=== PATIENT | male | born 1960 | race Caucasian/White ===

== ENCOUNTER 2021-08-27 05:17 | Inpatient (IN) ==
[2021-08-27] MEDS ORDERED: ONDANSETRON 4 MG/2 ML VIAL IV ONE (05:33)
[2021-08-27] MEDS ORDERED: 0.9 % SODIUM CHLORIDE 1,000 ML IV ONE (05:33)
[2021-08-27 06:30] LABS: Basophils # (Auto) 0.04 K/mcL (0.00-0.30); Basophils % (Auto) 0.3 % (0.0-2.0); Eosinophils # (Auto) 0.15 K/mcL (0.00-0.70); Eosinophils % (Auto) 1.1 % (0.0-7.0); Hemoglobin 10.8 g/dL (13.7-17.5); Mean Cell Volume 87.3 fL (80.0-100.0); Mean Corpuscular HGB Conc 29.2 g/dL (31.0-36.0); Mean Platelet Volume 10.3 fL (7.4-10.4); Monocytes # (Auto) 0.74 K/mcL (0.10-0.90); Monocytes % (Auto) 5.5 % (1.0-12.0); Neutrophils % (Auto) 87.1 % (38.0-78.0); Platelet Count 373 K/mcL (140-440); RBC 4.24 M/mcL (4.63-6.08); Red Cell Distribution Width 16.6 % (11.5-14.5); WBC 13.4 K/mcL (4.5-11.0)
[2021-08-27] MEDS ORDERED: PANTOPRAZOLE 40 MG VIAL IV ONE (06:46)
[2021-08-27] MEDS ORDERED: MAG HYDROX/AL HYDROX/SIMETH 30 ML ORAL.SUSP PO ONE (06:46)
--- NOTE | 2021-08-27 06:46 | Emergency Department Note ---
Nausea/Vomiting/Diarrhea HPI General Chief complaint: Nausea/Vomiting/Diarrhea Stated complaint: Nausea, Vomiting Time Seen by Provider: 08/27/21 05:33 Source: patient Mode of arrival: EMS Limitations: no limitations History of Present Illness HPI Narrative: Narrative: 61-year-old male history of CVA, type 2 diabetes, peptic ulcer disease, hypertension hyperlipidemia presenting to the ED with nonbloody nausea vomiting for the past 2 days, says he is unable to keep anything down. For me he denies any abdominal pain denies any diarrhea and states he is still passing flatus and having regular bowel movements no fever no chills no cardiorespiratory complaints. Says he feels dehydrated. Previous abdominal amarjit geries include appendectomy. Denies any history of hepatobiliary or pancreatic disease. No other complaints. Related Data Home Medications Medication Instructions Recorded Confirmed aspirin 81 mg tablet,delayed 81 mg PO QDAY tab 10/20/14 06/16/21 release pantoprazole 40 mg tablet,delayed 40 mg PO QDAY tab 05/29/20 06/16/21 release Previous Rx's Medication Instructions Recorded motorized wheelchair See Dose Instructions TOPICAL 06/11/15 DAILY #1 disable parking permit #1 each 09/11/15 MATTRESS #1 08/10/16 blood-glucose meter (Contour Next #1 each 07/04/18 Meter) lancets (Comfort Lancets) #100 each 07/04/18 ferrous sulfate 325 mg (65 mg 325 mg PO QDAY #1 tab 09/04/19 iron) tablet,delayed release pravastatin 20 mg tablet 20 mg PO QHS #90 tab 04/14/21 amlodipine 5 mg tablet 5 mg PO QDAY #90 tab 07/16/21 bisoprolol 10 1 tab PO BID #180 tab 07/16/21 mg-hydrochlorothiazide 6.25 mg tablet clopidogrel 75 mg tablet 75 mg PO QDAY #90 tab 07/16/21 levothyroxine 50 mcg tablet 50 mcg PO QDAY #90 tab 07/16/21 lisinopril 5 mg tablet 5 mg PO QDAY #90 tab 07/16/21 metformin 500 mg tablet,extended 1,000 mg PO BID #360 tab 07/16/21 release 24 hr dulaglutide 1.5 mg/0.5 mL 1.5 mg (0.5 mL) SUB-Q QWEEK 120 07/28/21 subcutaneous pen injector Days #8 ml (Trulicity) hydrocodone 7.5 mg-acetaminophen 1 tab PO BID PRN #56 tab 08/18/21 325 mg tablet Allergies Allergy/AdvReac Type Severity Reaction Status Date / Time No Known Intolerances Allergy Unknown Unknown Verified 06/16/21 08:01 Review of Systems ROS ROS Narrative: Narrative: All systems ED: reviewed and negative except as stated. [facility] Narrative Patient History Narrative: Narrative: Medical/Surgical/Family History All Active Problems (Updated 08/27/21 @ 06:59 by Kermit Loja DO) Nausea & vomiting (Acute) JULIANN (acute kidney injury) (Acute) Medicare annual wellness visit, subsequent (Acute) History of osteomyelitis (Acute) Amputation of finger (Chronic) Tubular adenoma of colon (Chronic) Peptic esophageal ulcer (Chronic) H/O esophagogastroduodenoscopy (Chronic) History of colonoscopy (Chronic) Medicare annual wellness visit, initial (Acute) Chronic pain of left lower extremity (Chronic) Foreign body in throat (Acute) Hemiplegia, post-stroke (Chronic) Uncontrolled type 2 diabetes mellitus (Chronic) Wheelchair dependence (Chronic) History of cerebrovascular accident (CVA) with residual deficit (Chronic) H/O hand surgery (Chronic) S/P appendectomy (Chronic) Pain in limb (Chronic 08/21/14) Pain in joint involving pelvic region and thigh (Chronic) Obesity (Chronic) Hypothyroidism (Chronic) Hypertension, essential (Chronic) Hyperlipidemia (Chronic) Hemiplegia, post-stroke (Chronic) Esophageal reflux (Chronic) DMII (diabetes mellitus, type 2) (Chronic) CVA (cerebral vascular accident) (Chronic 04/01/08) Anemia (Chronic 09/29/11) Medical History Anemia (09/29/11) Chronic pain of left lower extremity CVA (cerebral vascular accident) (04/01/08) DMII (diabetes mellitus, type 2) Esophageal reflux Hemiplegia, post-stroke Left Hemiplegia, post-stroke History of osteomyelitis Right index finger amputation July 2020. Hyperlipidemia Hypertension, essential Hypothyroidism Medicare annual wellness visit, initial Medicare annual wellness visit, subsequent Obesity Pain in joint involving pelvic region and thigh Chronic left hip and knee pain worse since the stroke in 2007. Pain in limb (08/21/14) Peptic esophageal ulcer Tubular adenoma of colon Uncontrolled type 2 diabetes mellitus Surgical History Amputation of finger July 2020, second digit right hand, due to osteomyelitis distal phalanx. H/O esophagogastroduodenoscopy April 2020 H/O hand surgery 1968- Amputation of fifth digit on right hand resulted from accident History of colonoscopy April 2020 S/P appendectomy 2003 Family History Mother Coronary artery disease Living: required coronary artery bypass graft Type 2 diabetes mellitus Brother Type 2 diabetes mellitus Grandfather-paternal Type 2 diabetes mellitus Malignant neoplasm Grandmother-maternal Type 2 diabetes mellitus Social History Smoking Status: Never smoker Alcohol Intake Frequency: does not drink Substance Use: does not use Exam Narrative Narrative: Narrative: Constitutional: normally developed, no acute distress . Head: Normocephalic, atraumatic, Eyes: No Icterus, ENT: Dry mucus membranes, Neck: Supple, Cardiac: Normal heart sounds, palpable radial pulses, no peripheral edema Pulmonary: Normal respiratory effort. Breath sounds clear, no wheeze, rhonchi, rales, Gastrointestinal: Abdomen soft, non-distended, non-tender, negative Melgar's Musculoskeletal: No gross deformities, well perfused Skin: warm, dry Neuro: Alert and oriented. General Limitations: no limitations Course Vital Signs Vital signs: Vital Signs Temperature 36.1 C 08/27/21 05:19 Pulse Rate 84 08/27/21 05:19 Respiratory Rate 18 08/27/21 05:19 Blood Pressure 96/61 08/27/21 05:19 Pulse Oximetry (%) 95 08/27/21 05:19 Temperature 36.1 C 08/27/21 05:19 Pulse Rate 86 08/27/21 05:55 Respiratory Rate 18 08/27/21 05:19 Blood Pressure 82/51 08/27/21 05:55 Pulse Oximetry (%) 93 08/27/21 05:55 MDM MDM Narrative Medical decision making narrative: Narrative: 61-year-old with intractable nausea vomiting for past 2 days denies abdominal pain and benign exam overall nontoxic does appear dry blood pressure is mildly hypotensive but is mentating very well. Will obtain labs and hydrate the patient with 2 L IV fluids and reevaluate. Twelve-lead EKG sinus rhythm heart rate 88 MO, QRS, QTc within normal, old inferior infarct no acute ischemic or STEMI criteria Point of care troponin -0.01 CBC White count 13.4 hemoglobin stable 10.8 Electrolytes do show an anion gap metabolic acidosis and acute kidney injury creatinine 3.3, glucose is 164 lipase is normal LFTs bilirubin normal. May be due to severe dehydration from intractable nausea vomiting however Considering the electrolyte disturbances will obtain CT of the abdomen as well as lactic acid and VBG. Patient will be signed out to next physician pending final disposition Lab Data Result diagrams: 08/27/21 05:48 08/27/21 05:48 Labs: Lab Results 08/27/21 08/27/21 08/27/21 Range/Units 05:48 05:48 05:49 WBC 13.4 H (4.5-11.0) K/mcL RBC 4.24 L (4.63-6.08) M/mcL Hgb 10.8 L (13.7-17.5) g/dL Hct 37.0 L (40.1-51.0) % MCV 87.3 (80.0-100.0) fL MCH 25.5 L (26.0-34.0) pg MCHC 29.2 L (31.0-36.0) g/dL RDW 16.6 H (11.5-14.5) % Plt Count 373 (140-440) K/mcL MPV 10.3 (7.4-10.4) fL Neut % (Auto) 87.1 H (38.0-78.0) % Lymph % (Auto) 6.0 L (15.5-49.0) % [place] % (Auto) 5.5 (1.0-12.0) % Eos % (Auto) 1.1 (0.0-7.0) % Baso % (Auto) 0.3 (0.0-2.0) % Lymph # (Auto) 0.80 L (1.50-4.80) K/mcL [place] # (Auto) 0.74 (0.10-0.90) K/mcL Eos # (Auto) 0.15 (0.00-0.70) K/mcL Baso # (Auto) 0.04 (0.00-0.30) K/mcL Absolute Neutrophils 11.71 H (1.80-8.00) K/mcL Sodium 133 (133-145) mmol/L Potassium 4.5 (3.3-5.1) mmol/L Chloride 102 (96-108) mmol/L Carbon Dioxide 11 L (22-30) mmol/L Anion Gap 20.0 H (8.0-16.0) BUN 93 H (8-23) mg/dL Creatinine 3.3 H (0.7-1.2) mg/dL GFR Calculation 19 Glucose 164 H (70-105) mg/dL Calcium 9.7 (8.6-10.4) mg/dL Total Bilirubin 0.2 (0.1-1.0) mg/dL AST 7 (<40) U/L ALT 8 (<40) U/L Alkaline Phosphatase 69 (39-117) U/L Total Protein 7.6 (5.9-8.4) gm/dL Albumin 3.2 (3.2-5.2) gm/dL Globulin 4.4 H (2.2-3.7) gm/dL Albumin/Globulin Ratio 0.7 L (1.0-2.3) Lipase 49 (7-60) U/L POC Troponin I 0.01 L (0.02-0.08) Discharge Plan Patient/Caregiver Discharge Instructions Pt seen by [facility]/PA only: No Clinical Impression: Nausea & vomiting, JULIANN (acute kidney injury) Patient Disposition: Still a Patient Condition: Fair Follow up with: Geovanny Lopez PA-C [Primary Care Provider] - Prescriptions: No Action (DME) disable parking permit Qty: 1 0RF Rx Instructions: use as directed. ferrous sulfate 325 mg (65 mg iron) tablet,delayed release 325 mg (65 mg iron) tablet,delayed release (DR/EC) 325 mg PO QDAY Qty: 1 0RF pravastatin 20 mg tablet 20 mg PO QHS Qty: 90 1RF lisinopril 5 mg tablet 5 mg PO QDAY Qty: 90 1RF metformin 500 mg tablet extended release 24 hr 1,000 mg PO BID Qty: 360 1RF bisoprolol-hydrochlorothiazide 10-6.25 mg tablet 1 tab PO BID Qty: 180 1RF clopidogrel 75 mg tablet 75 mg PO QDAY Qty: 90 1RF amlodipine 5 mg tablet 5 mg PO QDAY Qty: 90 1RF levothyroxine 50 mcg tablet 50 mcg PO QDAY Qty: 90 1RF Trulicity 1.5 mg/0.5 mL pen injector 1.5 mg SUB-Q QWEEK 120 Days Qty: 8 3RF hydrocodone-acetaminophen 7.5-325 mg tablet 1 tab PO BID PRN (Reason: pain) Qty: 56 0RF Rx Instructions: 1 tablet twice daily as needed for pain interfering with rest; for LEFT knee and hip pain since the stroke, okay to refill every 28 days. aspirin 81 mg tablet,delayed release (DR/EC) 81 mg PO QDAY 0RF motorized wheelchair See Dose Instructions TOPICAL DAILY Qty: 1 0RF Dose Instruction: for daily use Rx Instructions: for daily use TOPICAL DAILY (DME) MATTRESS Qty: 1 0RF Rx Instructions: MATTRESS FOR HOSPITAL BED [id number] PER PATIENT (DME) blood-glucose meter [Contour Next Meter] misc See Dose Instructions .ROUTE .MEDSUPPLY Qty: 1 0RF Dose Instruction: As directed Rx Instructions: Test once daily (DME) lancets [Comfort Lancets] misc See Dose Instructions .ROUTE .MEDSUPPLY Qty: 100 0RF Dose Instruction: As directed Rx Instructions: Use one daily pantoprazole 40 mg tablet,delayed release (DR/EC) 40 mg PO QDAY 0RF
[2021-08-27 06:47] LABS: ALT/SGPT 8 U/L (<40); AST/SGOT 7 U/L (<40); Albumin 3.2 gm/dL (3.2-5.2); Albumin/Globulin Ratio 0.7 (1.0-2.3); Alkaline Phosphatase 69 U/L (39-117); Bilirubin,Total 0.2 mg/dL (0.1-1.0); Blood Urea Nitrogen 93 mg/dL (8-23); Calcium 9.7 mg/dL (8.6-10.4); Carbon Dioxide 11 mmol/L (22-30); Chloride 102 mmol/L (96-108); Globulin 4.4 gm/dL (2.2-3.7); Glomerular Filtration Rate 19; Glucose 164 mg/dL (70-105)
[2021-08-27] MEDS ORDERED: LACTATED RINGERS 1,000 ML IV ONE (06:47)
--- NOTE | 2021-08-27 08:15 | Cat Scan Report ---
History: Nausea, vomiting, abdominal pain, left hip pain, no prior history of cancer TECHNIQUE: The patient was imaged without oral or intravenous contrast. Patient has abnormally elevated serum creatinine level. He was scanned from above the diaphragm through the symphysis pubis. Sagittal and coronal reformats were created. The radiation exposure was limited using dose reduction technology. FINDINGS: Above the left diaphragm in the anterior segment of the left lung base there is a well-circumscribed 1.0 x 1.1 cm mass. On the most superior image, in the right middle lobe there is a ill-defined nodular density measuring approximately 7 x 15 mm in size. It goes beyond the [id number]. No pleural effusion is present. Evaluation of the abdominal organs without contrast is somewhat limited. The liver is normal in size. There are several punctate calcifications in the portal triads in the right lobe. The gallbladder is normal in contour. It may contain some sludge but there are no calcified stones. The wall is not thickened or inflamed. The bile ducts are nondilated. The spleen is normal in size and homogeneous. No abnormality is detected in the pancreas. The adrenals are normal. Patient has a complex heterogeneous solid mass replacing much of the left kidney. It extends laterally into the perirenal fat. It measures roughly 7.5 x 9.9 x 12 cm. Without contrast, the left renal vein cannot be evaluated. However, it appears larger than the right, suggesting tumor infiltration. Patient also has multiple staghorn calculi in the left kidney. The largest is in the upper pole and measures 2.2 x 2.8 x 3.8 cm. There are smaller calculi in the right kidney. There is a smaller staghorn calculus in the lower pole infundibulum which measures 1.0 x 1.7 cm. No mass is seen in the right kidney. There is no hydronephrosis in either kidney. Aorta is normal in caliber and contains multiple scattered plaques. At the level of the left kidney, along with left side of the abdominal aorta there is a 1 cm lymph node. This could be a metastatic lymph node. No ascites is present. The bowel pattern is normal without evidence of obstruction or ileus. Urinary bladder is moderately distended. Prostate is moderately enlarged. Seminal vesicles are normal. 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 The tumor measures 4.0 x 4.3 cm. It is erodes cortex and is beginning to extend into the adjacent muscles. Severe osteoarthritis is present in the right hip and there is mild osteoarthritis in the left hip. Degenerative disc disease and arthritis are present at multiple levels in the spine. No spinal metastasis are seen. 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 Metastasis to left ischium, both lung bases, left para-aortic lymph node and probably left renal vein Bilateral renal calculi, without hydronephrosis Severe osteoarthritis in the right hip and moderate degenerative disc disease and arthritis in the lumbar spine Dr. Ferguson was called with report Interpreted and Authenticated by: Fabian Robison 08/27/21
--- NOTE | 2021-08-27 09:53 | Cat Scan Report ---
History: Left renal tumor with metastasis TECHNIQUE: The chest was imaged without contrast in axial plane at 2.5 mm intervals. Sagittal and coronal reformats were created. The radiation exposure was limited using dose reduction technology. FINDINGS: There are several widely dispersed noncalcified nodules in both lungs. They measure up to 11 mm in diameter. There are numerous pathologically enlarged lymph nodes in the mediastinum and both apulo. In the pretracheal retrocaval space the largest lymph node is 3.1 cm. Largest lymph node in the right hilum is 2.3 cm. No bone metastasis are seen in thorax. There is no pleural effusion. Heart size is normal. A large amount of calcified plaque is present in the coronary arteries. Large tumor is present in left kidney which was better seen on the preceding abdomen CT scan. IMPRESSION: Multiple pulmonary metastasis and multiple metastatic mediastinal and hilar lymph nodes Interpreted and Authenticated by: Fabian Robison 08/27/21
--- NOTE | 2021-08-27 10:46 | Nephrology Consult Note ---
HPI Data of Consult Patient: new to practice Consult date: 08/27/21 Requesting physician: Kermit Loja Primary Care Provider: Geovanny Lopez PA-C Consult Narrative Patient Information: Note initiated : 08/27/21 at 10:43 am Patient: Dashawn Smith 61 y/o M admitted on for Nausea, Vomiting. Dashawn Smith is a 61-year-old male with hypertension, hyperlipidemia, diabetes mellitus type 2, history of CVA presented to [facility] ED for nausea and vomiting. Labs were significant for metabolic acidosis and acute kidney injury. CT Abdomen and Pelvis without contrast reported a new large tumor in the left kidney (most likely a renal cell carcinoma) with metastasis to left ischium, both lung bases, left para-aortic lymph node and probably left renal vein. No hydronephrosis. He received 1L NS and 1L LR in ED. Nephrology consultation was requested for acute kidney injury. Chief complaint: Nausea and vomiting Reason for consult: Acute kidney injury cc:: CC: Constitutional Constitutional: Present fatigue and weakness EENT Nose, mouth and throat: Absent nasal congestion or sore throat Cardiovascular Cardiovascular: Absent chest pain or edema Respiratory Respiratory: Absent cough or dyspnea Gastrointestinal Gastrointestinal: Present nausea and vomiting Integumentary Integumentary: Absent rash or wounds Neurological Neurological: Present weakness; Absent confusion Psychiatric Psychiatric: Absent anxiety or panic attacks Hematologic/Lymphatic Hematologic/Lymphatic: Absent easy bleeding Allergic/Immunologic Allergic/Immunologic: Absent tongue swelling or uticaria PFSH PFSH All Active Problems (Updated 08/27/21 @ 10:44 by Bubba Pierre MD) Metabolic acidosis (Acute) Acute kidney injury with acute tubular necrosis (Acute) Nausea & vomiting (Acute) JULIANN (acute kidney injury) (Acute) Medicare annual wellness visit, subsequent (Acute) History of osteomyelitis (Acute) Amputation of finger (Chronic) Tubular adenoma of colon (Chronic) Peptic esophageal ulcer (Chronic) H/O esophagogastroduodenoscopy (Chronic) History of colonoscopy (Chronic) Medicare annual wellness visit, initial (Acute) Chronic pain of left lower extremity (Chronic) Foreign body in throat (Acute) Hemiplegia, post-stroke (Chronic) Uncontrolled type 2 diabetes mellitus (Chronic) Wheelchair dependence (Chronic) History of cerebrovascular accident (CVA) with residual deficit (Chronic) H/O hand surgery (Chronic) S/P appendectomy (Chronic) Pain in limb (Chronic 08/21/14) Pain in joint involving pelvic region and thigh (Chronic) Obesity (Chronic) Hypothyroidism (Chronic) Hypertension, essential (Chronic) Hyperlipidemia (Chronic) Hemiplegia, post-stroke (Chronic) Esophageal reflux (Chronic) DMII (diabetes mellitus, type 2) (Chronic) CVA (cerebral vascular accident) (Chronic 04/01/08) Anemia (Chronic 09/29/11) Medical History Anemia (09/29/11) Chronic pain of left lower extremity CVA (cerebral vascular accident) (04/01/08) DMII (diabetes mellitus, type 2) Esophageal reflux Hemiplegia, post-stroke Left Hemiplegia, post-stroke History of osteomyelitis Right index finger amputation July 2020. Hyperlipidemia Hypertension, essential Hypothyroidism Medicare annual wellness visit, initial Medicare annual wellness visit, subsequent Obesity Pain in joint involving pelvic region and thigh Chronic left hip and knee pain worse since the stroke in 2007. Pain in limb (08/21/14) Peptic esophageal ulcer Tubular adenoma of colon Uncontrolled type 2 diabetes mellitus Surgical History Amputation of finger July 2020, second digit right hand, due to osteomyelitis distal phalanx. H/O esophagogastroduodenoscopy April 2020 H/O hand surgery 1968- Amputation of fifth digit on right hand resulted from accident History of colonoscopy April 2020 S/P appendectomy 2003 Family History Mother Coronary artery disease Living: required coronary artery bypass graft Type 2 diabetes mellitus Brother Type 2 diabetes mellitus Grandfather-paternal Type 2 diabetes mellitus Malignant neoplasm Grandmother-maternal Type 2 diabetes mellitus Social History household members: other details: roommate housing: apartment lives independently: Yes marital status: single education level: vocational service: No occupational status: disabled 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 other: Children-2 eating out: 4 or more times/week physical activity: none smoking status: Never smoker alcohol intake frequency: does not drink substance use type: does not use amanda/methodist: Methodist seatbelt use: never MEDS/ALLERGIES Home Medications and Allergies Home Medications Medication Instructions Recorded Confirmed Type aspirin 81 mg tablet,delayed 81 mg PO QDAY tab 10/20/14 06/16/21 History release motorized wheelchair See Dose Instructions TOPICAL 06/11/15 06/16/21 Rx DAILY #1 disable parking permit #1 each 09/11/15 06/16/21 Rx MATTRESS #1 08/10/16 06/16/21 Rx blood-glucose meter (Contour Next #1 each 07/04/18 06/16/21 Rx Meter) lancets (Comfort Lancets) #100 each 07/04/18 06/16/21 Rx ferrous sulfate 325 mg (65 mg 325 mg PO QDAY #1 tab 09/04/19 08/27/21 Rx iron) tablet,delayed release pantoprazole 40 mg tablet,delayed 40 mg PO QDAY tab 05/29/20 08/27/21 History release pravastatin 20 mg tablet 20 mg PO QHS #90 tab 04/14/21 08/27/21 Rx amlodipine 5 mg tablet 5 mg PO QDAY #90 tab 07/16/21 08/27/21 Rx bisoprolol 10 1 tab PO BID #180 tab 07/16/21 08/27/21 Rx mg-hydrochlorothiazide 6.25 mg tablet clopidogrel 75 mg tablet 75 mg PO QDAY #90 tab 07/16/21 08/27/21 Rx levothyroxine 50 mcg tablet 50 mcg PO QDAY #90 tab 07/16/21 08/27/21 Rx lisinopril 5 mg tablet 5 mg PO QDAY #90 tab 07/16/21 08/27/21 Rx metformin 500 mg tablet,extended 1,000 mg PO BID #360 tab 07/16/21 08/27/21 Rx release 24 hr dulaglutide 1.5 mg/0.5 mL 1.5 mg (0.5 mL) SUB-Q QWEEK 120 07/28/21 Rx subcutaneous pen injector Days #8 ml (Trulicity) hydrocodone 7.5 mg-acetaminophen 1 tab PO BID PRN #56 tab 08/18/21 08/27/21 Rx 325 mg tablet Allergies Allergy/AdvReac Type Severity Reaction Status Date / Time No Known Intolerances Allergy Unknown Unknown Verified 06/16/21 08:01 Physical Examination Vital Signs Vital signs: Temp Pulse Resp BP Pulse Ox 97.0 F 88 14 110/67 95 08/27/21 05:19 08/27/21 10:32 08/27/21 10:32 08/27/21 10:32 08/27/21 10:32 General Appearance General appearance: appears started age EENT EENT: mucous membranes dry Neck Neck: no JVD Respiratory Respiratory: clear Cardiovascular Cardiology: no edema Gastrointestinal Gastrointestinal: no tenderness and no guarding Integumentary Integumentary: no rash Neurologic Neurologic: no focal deficit and alert and oriented x3 Musculoskeletal Musculoskeletal: deformities Psychiatric Psychiatric: mood/affect appropriate and cooperative Results Lab Results Result Diagrams: 08/27/21 05:48 08/27/21 05:48 Lab results: Most recent lab results Creatinine 3.3 mg/dL (0.7-1.2) H 08/27/21 05:48 Calcium 9.7 mg/dL (8.6-10.4) 08/27/21 05:48 A/P Assessment and plan (1) Acute kidney injury with acute tubular necrosis: Assessment and plan: Dashawn Smith is a 61-year-old male with hypertension, hyperlipidemia, diabetes mellitus type 2, history of CVA presented to [facility] ED for nausea and vomiting. Labs were significant for metabolic acidosis and acute kidney injury. CT Abdomen and Pelvis without contrast reported a new large tumor in the left kidney (most likely a renal cell carcinoma) with metastasis to left ischium, both lung bases, left para-aortic lymph node and probably left renal vein. No hydronephrosis. He received 1L NS and 1L LR in ED. Nephrology consultation was requested for acute kidney injury. Acute kidney injury, likely acute tubular necrosis associated with dehydration from nausea, vomiting and decreased oral intake with metabolic acidosis, present on arrival. There is no recent history of IV contrast administration or NSAID use. Intravascular volume depletion suspected. Work up: Urinalysis pending. 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 Metastasis to left ischium, both lung bases, left para-aortic lymph node and probably left renal vein. Bilateral renal calculi, without hydronephrosis. Severe osteoarthritis in the right hip and moderate degenerative disc disease and arthritis in the lumbar spine. CT Chest without contrast on 08/27/21: Multiple pulmonary metastasis and multiple metastatic mediastinal and hilar lymph nodes. Progress: Serum creatinine increased from a baseline serum creatinine of 0.9-1.2 to 3.3. Baseline serum creatinine: 0.9-1.2 Urine output: 800 ml reported in ED. Metabolic acidosis. No fluid overload. No uremic symptoms. Recommendations/Plan: Sodium Bicarbonate 150 mEq in 1L D5W at 100 ml/hour for metabolic acidosis. No urgent acute hemodialysis need. He also declined transfer to another hospital for possible dialysis need. Avoid NSAIDs, nephrotoxic medications and IV contrast. Monitor BMP and urine output. Status: Acute (2) Metabolic acidosis: Status: Acute Time Spent With Patient Time: Total time spent is greater than 50% in coordination of care (as documented) at patient's floor/unit and/or counseling patient:
--- NOTE | 2021-08-27 10:49 | Emergency Department Note ---
Course Course Course Narrative: Patient CT scan is concerning for primary renal cell carcinoma with multiple metastases including bony and throughout the lungs. Patient's pH is 7.23 his BUN is 93 with a bicarb of 11 patient has been making urine. I spoke with our hospitalist they did not feel comfortable with him staying here as the patient may need urology services, oncology, interventional radiology if there is obstruction of the mass. We will attempt to transfer the patient. I have talked with [facility] this time did not agree to accept the patient. It felt the patient need fluid resuscitation and conservative measures prior to consideration of transfer to their facility. I have also spoke with [facility] in [place]. They tell me to continue IV fluids follow electrolytes and call back if patient's kidney function worsens. At this point in time they are not agreeable for transfer. Vital Signs Vital signs: Vital Signs Temperature 97.0 F 08/27/21 05:19 Pulse Rate 84 08/27/21 05:19 Respiratory Rate 18 08/27/21 05:19 Blood Pressure 96/61 08/27/21 05:19 Pulse Oximetry (%) 95 08/27/21 05:19 Temperature 98.3 F 08/27/21 23:10 Pulse Rate 90 08/27/21 23:10 Respiratory Rate 20 08/27/21 23:10 Blood Pressure 91/51 08/27/21 23:10 Pulse Oximetry (%) 95 08/27/21 23:10 [facility] MDM Narrative Medical decision making narrative: Narrative: Patient was in the emergency department for most of my shift. We are unable to find an accepting facility the hospitalist has graciously agreed to admit the patient in the interim primarily for correction of his metabolic derangements and kidney injury. Lab Data Result diagrams: 08/27/21 05:48 08/27/21 05:48 Labs: Lab Results 08/27/21 08/27/21 08/27/21 Range/Units 05:48 05:48 05:48 WBC 13.4 H (4.5-11.0) K/mcL RBC 4.24 L (4.63-6.08) M/mcL Hgb 10.8 L (13.7-17.5) g/dL Hct 37.0 L (40.1-51.0) % POC Hct (41-55) MCV 87.3 (80.0-100.0) fL MCH 25.5 L (26.0-34.0) pg MCHC 29.2 L (31.0-36.0) g/dL RDW 16.6 H (11.5-14.5) % Plt Count 373 (140-440) K/mcL MPV 10.3 (7.4-10.4) fL Neut % (Auto) 87.1 H (38.0-78.0) % Lymph % (Auto) 6.0 L (15.5-49.0) % Mcdonough % (Auto) 5.5 (1.0-12.0) % Eos % (Auto) 1.1 (0.0-7.0) % Baso % (Auto) 0.3 (0.0-2.0) % Lymph # (Auto) 0.80 L (1.50-4.80) K/mcL Mcdonough # (Auto) 0.74 (0.10-0.90) K/mcL Eos # (Auto) 0.15 (0.00-0.70) K/mcL Baso # (Auto) 0.04 (0.00-0.30) K/mcL Absolute Neutrophils 11.71 H (1.80-8.00) K/mcL POC VBG pH (7.32-7.42) POC VBG pCO2 at Temp (41-51) POC VBG pO2 (25-40) POC VBG HCO3 (24-28) POC VBG Total CO2 (25-29) POC Venous O2 Sat (40-70) POC VBG Base Excess (-2-2) POC Sodium (133-145) Sodium 133 (133-145) mmol/L POC Potassium (3.3-5.1) Potassium 4.5 (3.3-5.1) mmol/L POC Chloride (96-108) Chloride 102 (96-108) mmol/L Carbon Dioxide 11 L (22-30) mmol/L POC Total CO2 (22-30) Anion Gap 20.0 H (8.0-16.0) POC BUN (6-20) BUN 93 H (8-23) mg/dL Creatinine 3.3 H (0.7-1.2) mg/dL POC Creatinine (0.6-1.2) GFR Calculation 19 Glucose 164 H (70-105) mg/dL POC Glucose (70-105) POC Venous Lactate (0.5-2) Calcium 9.7 (8.6-10.4) mg/dL POC WB Ioniz Calcium (1.16-1.32) Total Bilirubin 0.2 (0.1-1.0) mg/dL AST 7 (<40) U/L ALT 8 (<40) U/L Alkaline Phosphatase 69 (39-117) U/L Total Protein 7.6 (5.9-8.4) gm/dL Albumin 3.2 (3.2-5.2) gm/dL Globulin 4.4 H (2.2-3.7) gm/dL Albumin/Globulin Ratio 0.7 L (1.0-2.3) Lipase 49 (7-60) U/L Beta-Hydroxybutyrate 1.65 H (<0.27) mmol/L Urine Color Urine Appearance (Clear) Urine pH (5.0-9.0) Ur Specific [place] (1.000-1.035) Urine Protein (Negative) mg/dL Urine Glucose (UA) (Negative) mg/dL Urine Ketones (Negative) mg/dL Urine Occult Blood (Negative) mg/dL Urine Nitrate (Negative) Urine Bilirubin (Negative) mg/dL Urine Urobilinogen mg/dL Ur Leukocyte Esterase (Negative) /uL Urine RBC (0-3) /hpf Urine WBC (0-4) /hpf Ur Squamous Epith Cells (0-4) /hpf Urine Bacteria (0) /hpf Hyaline Casts (0-2) /lph Ur Culture Indicated? POC Troponin I (0.02-0.08) 08/27/21 08/27/21 08/27/21 Range/Units 05:49 07:27 09:47 WBC (4.5-11.0) K/mcL RBC (4.63-6.08) M/mcL Hgb (13.7-17.5) g/dL Hct (40.1-51.0) % POC Hct (41-55) MCV (80.0-100.0) fL MCH (26.0-34.0) pg MCHC (31.0-36.0) g/dL RDW (11.5-14.5) % Plt Count (140-440) K/mcL MPV (7.4-10.4) fL Neut % (Auto) (38.0-78.0) % Lymph % (Auto) (15.5-49.0) % Mcdonough % (Auto) (1.0-12.0) % Eos % (Auto) (0.0-7.0) % Baso % (Auto) (0.0-2.0) % Lymph # (Auto) (1.50-4.80) K/mcL Mcdonough # (Auto) (0.10-0.90) K/mcL Eos # (Auto) (0.00-0.70) K/mcL Baso # (Auto) (0.00-0.30) K/mcL Absolute Neutrophils (1.80-8.00) K/mcL POC VBG pH 7.23 L (7.32-7.42) POC VBG pCO2 at Temp 35.3 L (41-51) POC VBG pO2 20 L (25-40) POC VBG HCO3 14.9 L (24-28) POC VBG Total CO2 16.0 L (25-29) POC Venous O2 Sat 24.0 L (40-70) POC VBG Base Excess -13.0 L (-2-2) POC Sodium (133-145) Sodium (133-145) mmol/L POC Potassium (3.3-5.1) Potassium (3.3-5.1) mmol/L POC Chloride (96-108) Chloride (96-108) mmol/L Carbon Dioxide (22-30) mmol/L POC Total CO2 (22-30) Anion Gap (8.0-16.0) POC BUN (6-20) BUN (8-23) mg/dL Creatinine (0.7-1.2) mg/dL POC Creatinine (0.6-1.2) GFR Calculation Glucose (70-105) mg/dL POC Glucose (70-105) POC Venous Lactate 1.0 (0.5-2) Calcium (8.6-10.4) mg/dL POC WB Ioniz Calcium (1.16-1.32) Total Bilirubin (0.1-1.0) mg/dL AST (<40) U/L ALT (<40) U/L Alkaline Phosphatase (39-117) U/L Total Protein (5.9-8.4) gm/dL Albumin (3.2-5.2) gm/dL Globulin (2.2-3.7) gm/dL Albumin/Globulin Ratio (1.0-2.3) Lipase (7-60) U/L Beta-Hydroxybutyrate (<0.27) mmol/L Urine Color Yellow Urine Appearance Hazy A (Clear) Urine pH 5.0 (5.0-9.0) Ur Specific [place] 1.014 (1.000-1.035) Urine Protein 30 A (Negative) mg/dL Urine Glucose (UA) Neg (Negative) mg/dL Urine Ketones Neg (Negative) mg/dL Urine Occult Blood 0.03 (Negative) mg/dL Urine Nitrate Neg (Negative) Urine Bilirubin Neg (Negative) mg/dL Urine Urobilinogen Neg mg/dL Ur Leukocyte Esterase Neg (Negative) /uL Urine RBC 1 (0-3) /hpf Urine WBC 2 (0-4) /hpf Ur Squamous Epith Cells 0 (0-4) /hpf Urine Bacteria None (0) /hpf Hyaline Casts 1 (0-2) /lph Ur Culture Indicated? No POC Troponin I 0.01 L (0.02-0.08) 08/27/21 08/27/21 Range/Units 12:51 12:52 WBC (4.5-11.0) K/mcL RBC (4.63-6.08) M/mcL Hgb (13.7-17.5) g/dL Hct (40.1-51.0) % POC Hct 30.0 L (41-55) MCV (80.0-100.0) fL MCH (26.0-34.0) pg MCHC (31.0-36.0) g/dL RDW (11.5-14.5) % Plt Count (140-440) K/mcL MPV (7.4-10.4) fL Neut % (Auto) (38.0-78.0) % Lymph % (Auto) (15.5-49.0) % Mcdonough % (Auto) (1.0-12.0) % Eos % (Auto) (0.0-7.0) % Baso % (Auto) (0.0-2.0) % Lymph # (Auto) (1.50-4.80) K/mcL Mcdonough # (Auto) (0.10-0.90) K/mcL Eos # (Auto) (0.00-0.70) K/mcL Baso # (Auto) (0.00-0.30) K/mcL Absolute Neutrophils (1.80-8.00) K/mcL POC VBG pH 7.30 L (7.32-7.42) POC VBG pCO2 at Temp 33.3 L (41-51) POC VBG pO2 17 L (25-40) POC VBG HCO3 16.3 L (24-28) POC VBG Total CO2 17.0 L (25-29) POC Venous O2 Sat 20.0 L (40-70) POC VBG Base Excess -10.0 L (-2-2) POC Sodium 137 (133-145) Sodium (133-145) mmol/L POC Potassium 4.2 (3.3-5.1) Potassium (3.3-5.1) mmol/L POC Chloride 110 H (96-108) Chloride (96-108) mmol/L Carbon Dioxide (22-30) mmol/L POC Total CO2 17.0 L (22-30) Anion Gap (8.0-16.0) POC BUN 98 H (6-20) BUN (8-23) mg/dL Creatinine (0.7-1.2) mg/dL POC Creatinine 3.2 H (0.6-1.2) GFR Calculation Glucose (70-105) mg/dL POC Glucose 128 H (70-105) POC Venous Lactate 0.6 (0.5-2) Calcium (8.6-10.4) mg/dL POC WB Ioniz Calcium 1.30 (1.16-1.32) Total Bilirubin (0.1-1.0) mg/dL AST (<40) U/L ALT (<40) U/L Alkaline Phosphatase (39-117) U/L Total Protein (5.9-8.4) gm/dL Albumin (3.2-5.2) gm/dL Globulin (2.2-3.7) gm/dL Albumin/Globulin Ratio (1.0-2.3) Lipase (7-60) U/L Beta-Hydroxybutyrate (<0.27) mmol/L Urine Color Urine Appearance (Clear) Urine pH (5.0-9.0) Ur Specific [place] (1.000-1.035) Urine Protein (Negative) mg/dL Urine Glucose (UA) (Negative) mg/dL Urine Ketones (Negative) mg/dL Urine Occult Blood (Negative) mg/dL Urine Nitrate (Negative) Urine Bilirubin (Negative) mg/dL Urine Urobilinogen mg/dL Ur Leukocyte Esterase (Negative) /uL Urine RBC (0-3) /hpf Urine WBC (0-4) /hpf Ur Squamous Epith Cells (0-4) /hpf Urine Bacteria (0) /hpf Hyaline Casts (0-2) /lph Ur Culture Indicated? POC Troponin I (0.02-0.08) ED POC Tests ED POC Tests: CORRINA - SARS Antigen Negative Discharge Plan Patient/Caregiver Discharge Instructions Pt seen by ROAD PRODUCTION GENERAL MANAGER/PA only: No Clinical Impression: Nausea & vomiting, JULIANN (acute kidney injury), Metastatic cancer, Left kidney mass Patient Disposition: Xfer As Inpt ([facility]) Condition: Fair Discharge Date/Time: 08/27/21 19:30
[2021-08-27 10:57] LABS: Appearance,Urine HAZY (Clear); Bilirubin,Urine NEG (Negative); Color,Urine YELLOW; Culture Indicated,Urine No; Glucose,Urine (UA) NEG (Negative); Ketones,Urine NEG (Negative); Leukocyte Esterase,Urine NEG /uL (Negative); Nitrate,Urine NEG (Negative); Protein,Urine 30 mg/dL (Negative); Specific Gravity,Urine 1.014 (1.000-1.035); Urine Blood 0.03 mg/dL (Negative); Urine Hyaline Cast 1 /lph (0-2); Urine RBC 1 /hpf (0-3); Urine Squamous Epithelial Cell 0 /hpf (0-4); Urine WBC 2 /hpf (0-4); Urobilinogen,Urine NEG
[2021-08-27] MEDS ORDERED: SODIUM BICARBONATE VIAL 150 MEQ in DEXTROSE 5% IN WATER 850 ML IV ONE (11:00)
[2021-08-27 12:55] LABS: POC Calcium, Ionized 1.3 (1.16-1.32); POC Creatinine 3.2 (0.6-1.2); POC Potassium 4.2 (3.3-5.1)
[2021-08-27] MEDS: morphine 2 MG/ML VIAL IV PRN ×2 (14:24→20:44)
--- NOTE | 2021-08-27 15:40 | Ultrasound Report ---
History: Nausea, vomiting, acute kidney injury, left renal tumor FINDINGS: There is a large complex heterogeneous tumor arising from the left kidney. It measures approximately 7.5 x 10 x 12 cm in size. This appears to invade the left renal vein. The tumor may be invading the right renal pelvis as well but there is no hydronephrosis. Left ureter is decompressed. There are staghorn calculi in the left kidney measuring up to 3.8 cm. No flow urine and could be demonstrated through the left ureter into the bladder. The right kidney is normal in size and contains nonobstructing stones. There is flow of urine through the right ureter into the bladder. The renal cortex is echogenic bilaterally due to chronic medical renal disease. Prostate is enlarged and heterogeneous. The bladder contained 507 cc of urine. IMPRESSION: Large tumor in the left kidney invading the left renal vein and possible of the renal pelvis No hydronephrosis left kidney Severely diminished urine output from the left kidney and normal urine output from right kidney Bilateral kidney stones Dr. Ferguson was called with the report Interpreted and Authenticated by: Fabian Robison 08/27/21
--- NOTE | 2021-08-27 16:49 | Internal Med History&Physical ---
HPI History of Present Illness Patient information: Note initiated : 08/27/21 at 4:39 pm Service Date, if different from initiated Date: [as above] Patient: Dashawn Smith a 61 y/o M admitted on for Nausea, Vomiting. Chief Complaint: [Weakness, nausea, vomiting] Chief complaint: Weakness History of present illness: Mr. Smith is a 61 year old M with a past medical history significant for prior stroke with residual dense left hemiplegia, diabetes mellitus type 2, and hypothyroidism who presents to the hospital with 4-day history of nausea, vomiting, and progressive weakness. The patient states that he has been unable to keep any food down. Despite being unable to eat or drink, the patient continued to take all of his medications somewhat included diuretics and antihypertensives as well as metformin. He lives alone and is mainly wheelchair dependent. His brother comes to visit and helps as well. He decided to come to the ER today as he was feeling very weak. On presentation he was hemodynamically stable and afebrile. Work-up included CT chest abdomen and pelvis which revealed large tumor in the left kidney which is most likely renal cell carcinoma that has metastasized to the left ischium, with numerous lung nodules and hilar lymphadenopathy. His lab work revealed acute kidney injury with a creatinine of 3.3. Initially the goal was to transfer the patient to a tertiary level facility with medical oncology, and possibly interventional radiology if there was concern for postobstructive uropathy. There is no accepting facility available and thus the hospital service was asked admit the patient for further management and evaluation of his acute kidney injury in the setting of newly diagnosed metastatic RCC. Review of Systems All systems: reviewed and no additional remarkable complaints except as stated Constitutional Constitutional: Present as per HPI EENT Eyes: Present as per HPI; Absent blurry vision Cardiovascular Cardiovascular: Present as per HPI; Absent chest pain, dyspnea, dyspnea on exertion, leg edema or palpatations Respiratory Respiratory: Present as per HPI; Absent cough, dyspnea, dyspnea on exertion, wheezing or stridor Gastrointestinal Gastrointestinal: Present as per HPI; Absent abdominal pain, diarrhea, dysphagia, hematemesis, melena, nausea or vomiting Musculoskeletal Musculoskeletal: Present as per HPI; Absent joint swelling, limited range of motion, muscle cramps, muscle weakness or myalgias Integumentary Integumentary: Present as per HPI; Absent erythema, new lesions, rash or wounds Neurological Neurological: Present as per HPI; Absent abnormal gait, behavioral changes, focal weakness, headache(s), loss of vision, numbness, sensory deficit or syncope Endocrine Endocrine: Absent change in body appearance, fatigue or heat intolerance Hematologic/Lymphatic Hematologic/Lymphatic: Present as per HPI PFSH PFSH All Active Problems (Updated 08/27/21 @ 16:47 by Kathy Holley MD) Generalized weakness (Acute) Left hemiplegia (Acute) Metastatic renal cell carcinoma (Acute) Metabolic acidosis (Acute) Acute kidney injury with acute tubular necrosis (Acute) Nausea & vomiting (Acute) JULIANN (acute kidney injury) (Acute) Medicare annual wellness visit, subsequent (Acute) History of osteomyelitis (Acute) Amputation of finger (Chronic) Tubular adenoma of colon (Chronic) Peptic esophageal ulcer (Chronic) H/O esophagogastroduodenoscopy (Chronic) History of colonoscopy (Chronic) Medicare annual wellness visit, initial (Acute) Chronic pain of left lower extremity (Chronic) Foreign body in throat (Acute) Hemiplegia, post-stroke (Chronic) Uncontrolled type 2 diabetes mellitus (Chronic) Wheelchair dependence (Chronic) History of cerebrovascular accident (CVA) with residual deficit (Chronic) H/O hand surgery (Chronic) S/P appendectomy (Chronic) Pain in limb (Chronic 08/21/14) Pain in joint involving pelvic region and thigh (Chronic) Obesity (Chronic) Hypothyroidism (Chronic) Hypertension, essential (Chronic) Hyperlipidemia (Chronic) Hemiplegia, post-stroke (Chronic) Esophageal reflux (Chronic) DMII (diabetes mellitus, type 2) (Chronic) CVA (cerebral vascular accident) (Chronic 04/01/08) Anemia (Chronic 09/29/11) Medical History Anemia (09/29/11) Chronic pain of left lower extremity CVA (cerebral vascular accident) (04/01/08) DMII (diabetes mellitus, type 2) Esophageal reflux Hemiplegia, post-stroke Left Hemiplegia, post-stroke History of osteomyelitis Right index finger amputation July 2020. Hyperlipidemia Hypertension, essential Hypothyroidism Medicare annual wellness visit, initial Medicare annual wellness visit, subsequent Obesity Pain in joint involving pelvic region and thigh Chronic left hip and knee pain worse since the stroke in 2007. Pain in limb (08/21/14) Peptic esophageal ulcer Tubular adenoma of colon Uncontrolled type 2 diabetes mellitus Surgical History Amputation of finger July 2020, second digit right hand, due to osteomyelitis distal phalanx. H/O esophagogastroduodenoscopy April 2020 H/O hand surgery 1969- Amputation of fifth digit on right hand resulted from accident History of colonoscopy April 2020 S/P appendectomy 2003 Family History Mother Coronary artery disease Living: required coronary artery bypass graft Type 2 diabetes mellitus Brother Type 2 diabetes mellitus Grandfather-paternal Type 2 diabetes mellitus Malignant neoplasm Grandmother-maternal Type 2 diabetes mellitus Social History household members: other details: roommate housing: apartment lives independently: Yes marital status: single education level: vocational service: No occupational status: disabled 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 other: Children-2 eating out: 4 or more times/week physical activity: none smoking status: Never smoker alcohol intake frequency: does not drink substance use type: does not use amanda/caodaism: Jain seatbelt use: never MEDS/ALLERGIES Home Medications and Allergies Home Medications Medication Instructions Recorded Confirmed Type aspirin 81 mg tablet,delayed 81 mg PO QDAY tab 10/20/14 06/16/21 History release motorized wheelchair See Dose Instructions TOPICAL 06/11/15 06/16/21 Rx DAILY #1 disable parking permit #1 each 09/11/15 06/16/21 Rx MATTRESS #1 08/10/16 06/16/21 Rx blood-glucose meter (Contour Next #1 each 07/04/18 06/16/21 Rx Meter) lancets (Comfort Lancets) #100 each 07/04/18 06/16/21 Rx ferrous sulfate 325 mg (65 mg 325 mg PO QDAY #1 tab 09/04/19 08/27/21 Rx iron) tablet,delayed release pantoprazole 40 mg tablet,delayed 40 mg PO QDAY tab 05/29/20 08/27/21 History release pravastatin 20 mg tablet 20 mg PO QHS #90 tab 04/14/21 08/27/21 Rx amlodipine 5 mg tablet 5 mg PO QDAY #90 tab 07/16/21 08/27/21 Rx bisoprolol 10 1 tab PO BID #180 tab 07/16/21 08/27/21 Rx mg-hydrochlorothiazide 6.25 mg tablet clopidogrel 75 mg tablet 75 mg PO QDAY #90 tab 07/16/21 08/27/21 Rx levothyroxine 50 mcg tablet 50 mcg PO QDAY #90 tab 07/16/21 08/27/21 Rx lisinopril 5 mg tablet 5 mg PO QDAY #90 tab 07/16/21 08/27/21 Rx metformin 500 mg tablet,extended 1,000 mg PO BID #360 tab 07/16/21 08/27/21 Rx release 24 hr dulaglutide 1.5 mg/0.5 mL 1.5 mg (0.5 mL) SUB-Q QWEEK 120 07/28/21 Rx subcutaneous pen injector Days #8 ml (Trulicity) hydrocodone 7.5 mg-acetaminophen 1 tab PO BID PRN #56 tab 08/18/21 08/27/21 Rx 325 mg tablet Allergies Allergy/AdvReac Type Severity Reaction Status Date / Time No Known Intolerances Allergy Unknown Unknown Verified 06/16/21 08:01 EXAM Constitutional Vitals: Temp Pulse Resp BP Pulse Ox 97.0 F 85 19 95/58 95 08/27/21 05:19 08/27/21 15:31 08/27/21 16:16 08/27/21 16:16 08/27/21 15:31 General appearance: average body habitus Head Head exam: Present atraumatic, normal inspection and normocephalic Eye Eye exam: Present EOMI, normal appearance and PERRL; Absent conjunctival injection ENT ENT exam: Present normal exam; Absent mucous membranes dry Neck Neck exam: Present full ROM; Absent lymphadenopathy Respiratory Respiratory exam: Present normal respiratory exam and CTAB; Absent decreased breath sounds, respiratory distress or wheezes Cardiovascular Cardiovascular exam: Present normal rate and rhythm and RRR; Absent JVD GI/Abdominal GI/Abdominal exam: Present normal bowel sounds and soft; Absent diminished bowel sounds, distended, guarding, mass, rebound or tenderness Neurological Exam Neurological exam: Present alert and oriented X3; Absent CN II-XII intact or normal gait Psychiatric Psychiatric exam: Present normal affect and normal mood Skin Skin exam: Present intact and warm; Absent erythema, pallor, petechiae or rash DATA Data Completed and Pending Labs: Labs from last 24 hours 08/27/21 08/27/21 08/27/21 12:52 12:51 09:47 WBC RBC Hgb Hct POC Hct 30.0 L MCV MCH MCHC RDW Plt Count MPV Neut % (Auto) Lymph % (Auto) [place] % (Auto) Eos % (Auto) Baso % (Auto) Lymph # (Auto) [place] # (Auto) Eos # (Auto) Baso # (Auto) Absolute Neutrophils POC VBG pH 7.30 L POC VBG pCO2 at Temp 33.3 L POC VBG pO2 17 L POC VBG HCO3 16.3 L POC VBG Total CO2 17.0 L POC Venous O2 Sat 20.0 L POC VBG Base Excess -10.0 L POC Sodium 137 Sodium POC Potassium 4.2 Potassium POC Chloride 110 H Chloride Carbon Dioxide POC Total CO2 17.0 L Anion Gap POC BUN 98 H BUN Creatinine POC Creatinine 3.2 H GFR Calculation Glucose POC Glucose 128 H POC Venous Lactate 0.6 Calcium POC WB Ioniz Calcium 1.30 Total Bilirubin AST ALT Alkaline Phosphatase Total Protein Albumin Globulin Albumin/Globulin Ratio Lipase Beta-Hydroxybutyrate Urine Color Yellow Urine Appearance Hazy A Urine pH 5.0 Ur Specific [place] 1.014 Urine Protein 30 A Urine Glucose (UA) Neg Urine Ketones Neg Urine Occult Blood 0.03 Urine Nitrate Neg Urine Bilirubin Neg Urine Urobilinogen Neg Ur Leukocyte Esterase Neg Urine RBC 1 Urine WBC 2 Ur Squamous Epith Cells 0 Urine Bacteria None Hyaline Casts 1 Ur Culture Indicated? No POC Troponin I 08/27/21 08/27/21 08/27/21 07:27 05:49 05:48 WBC RBC Hgb Hct POC Hct MCV MCH MCHC RDW Plt Count MPV Neut % (Auto) Lymph % (Auto) [place] % (Auto) Eos % (Auto) Baso % (Auto) Lymph # (Auto) [place] # (Auto) Eos # (Auto) Baso # (Auto) Absolute Neutrophils POC VBG pH 7.23 L POC VBG pCO2 at Temp 35.3 L POC VBG pO2 20 L POC VBG HCO3 14.9 L POC VBG Total CO2 16.0 L POC Venous O2 Sat 24.0 L POC VBG Base Excess -13.0 L POC Sodium Sodium POC Potassium Potassium POC Chloride Chloride Carbon Dioxide POC Total CO2 Anion Gap POC BUN BUN Creatinine POC Creatinine GFR Calculation Glucose POC Glucose POC Venous Lactate 1.0 Calcium POC WB Ioniz Calcium Total Bilirubin AST ALT Alkaline Phosphatase Total Protein Albumin Globulin Albumin/Globulin Ratio Lipase Beta-Hydroxybutyrate 1.65 H Urine Color Urine Appearance Urine pH Ur Specific [place] Urine Protein Urine Glucose (UA) Urine Ketones Urine Occult Blood Urine Nitrate Urine Bilirubin Urine Urobilinogen Ur Leukocyte Esterase Urine RBC Urine WBC Ur Squamous Epith Cells Urine Bacteria Hyaline Casts Ur Culture Indicated? POC Troponin I 0.01 L 08/27/21 08/27/21 05:48 05:48 WBC 13.4 H RBC 4.24 L Hgb 10.8 L Hct 37.0 L POC Hct MCV 87.3 MCH 25.5 L MCHC 29.2 L RDW 16.6 H Plt Count 373 MPV 10.3 Neut % (Auto) 87.1 H Lymph % (Auto) 6.0 L [place] % (Auto) 5.5 Eos % (Auto) 1.1 Baso % (Auto) 0.3 Lymph # (Auto) 0.80 L [place] # (Auto) 0.74 Eos # (Auto) 0.15 Baso # (Auto) 0.04 Absolute Neutrophils 11.71 H POC VBG pH POC VBG pCO2 at Temp POC VBG pO2 POC VBG HCO3 POC VBG Total CO2 POC Venous O2 Sat POC VBG Base Excess POC Sodium Sodium 133 POC Potassium Potassium 4.5 POC Chloride Chloride 102 Carbon Dioxide 11 L POC Total CO2 Anion Gap 20.0 H POC BUN BUN 93 H Creatinine 3.3 H POC Creatinine GFR Calculation 19 Glucose 164 H POC Glucose POC Venous Lactate Calcium 9.7 POC WB Ioniz Calcium Total Bilirubin 0.2 AST 7 ALT 8 Alkaline Phosphatase 69 Total Protein 7.6 Albumin 3.2 Globulin 4.4 H Albumin/Globulin Ratio 0.7 L Lipase 49 Beta-Hydroxybutyrate Urine Color Urine Appearance Urine pH Ur Specific [place] Urine Protein Urine Glucose (UA) Urine Ketones Urine Occult Blood Urine Nitrate Urine Bilirubin Urine Urobilinogen Ur Leukocyte Esterase Urine RBC Urine WBC Ur Squamous Epith Cells Urine Bacteria Hyaline Casts Ur Culture Indicated? POC Troponin I A/P Assessment and plan (1) Metabolic acidosis: Status: Acute (2) JULIANN (acute kidney injury): Status: Acute (3) Uncontrolled type 2 diabetes mellitus: Status: Chronic Qualifiers: Glycemic state: with hyperglycemia Qualified Code(s): E11.65 - Type 2 diabetes mellitus with hyperglycemia (4) History of cerebrovascular accident (CVA) with residual deficit: Status: Chronic (5) Metastatic renal cell carcinoma: Status: Acute (6) Left hemiplegia: Status: Acute (7) Generalized weakness: Status: Acute (8) Nausea & vomiting: Status: Acute Narrative A/P Narrative: The patient has newly diagnosed suspected metastatic renal cell carcinoma. He will require outpatient biopsy to confirm diagnosis. Unfortunately there was no accepting facility where IR [facility] medical oncology would be available. After tissue diagnosis is confirmed, the patient will require staging likely with a PET scan. A follow-up oncology visit will be needed to assess for treatment options and the candidacy for chemotherapy as this is nonsurgical. ECOG score to be evaluated. In the interim, he is in acute kidney injury and his antihypertensives, diuretics will be held. He will be resuscitated with IV fluids and his BMP will be monitored closely. We will hold nephrotoxic agents and renally dose medications. The patient would also benefit from outpatient follow-up with palliative care to determine goals of care. Time Spent With Patient Time: Total time spent is greater than 50% in coordination of care (as documented) at patient's floor/unit and/or counseling patient: Total time spent with greater than 50% in coordination of care (as documented) at patient's floor/unit and/or counseling patient:: 50 - 70 minutes
[2021-08-27] MEDS ORDERED: ONDANSETRON 4 MG/2 ML VIAL IV PRN (19:43)
[2021-08-27] MEDS ORDERED: DEXTROSE 50% 50 ML VIAL IV PRN (19:43)
[2021-08-27] MEDS ORDERED: DEXTROSE 31 GM ORAL.SUSP PO PRN (19:43)
[2021-08-27] MEDS: 0.9 % SODIUM CHLORIDE 10 ML SYRINGE IV SCH (20:11)
[2021-08-27] MEDS: DOCUSATE SODIUM 100 MG CAPSULE PO SCH (20:11)
[2021-08-27] MEDS: SENNOSIDES 1 TABLET PO SCH (20:11)
[2021-08-27] MEDS: INSULIN LISPRO 1 UNIT/0.01 ML UNIT SQ SCH (20:33)
[2021-08-27] MEDS: HEPARIN 5,000 UNIT/ML VIAL SQ SCH (20:33)
[2021-08-27] MEDS ORDERED: INSULIN LISPRO 1 UNIT/0.01 ML UNIT SQ ONE (20:33)
[2021-08-27] MEDS ORDERED: HEPARIN 5,000 UNIT/ML VIAL ONE (20:34)
[2021-08-27] MEDS ORDERED: SODIUM BICARBONATE VIAL 150 MEQ in DEXTROSE 5% IN WATER 850 ML IV SCH (21:00)
[2021-08-27] MEDS: LACTATED RINGERS 1,000 ML IV SCH (21:35)
[2021-08-28] MEDS: 0.9 % SODIUM CHLORIDE 10 ML SYRINGE IV SCH ×3 (05:00→21:27)
[2021-08-28 06:31] LABS: Basophils # (Auto) 0.04 K/mcL (0.00-0.30); Basophils % (Auto) 0.4 % (0.0-2.0); Eosinophils % (Auto) 3.1 % (0.0-7.0); Hematocrit 31.2 % (40.1-51.0); Hemoglobin 9.7 g/dL (13.7-17.5); Lymphocytes # (Auto) 0.82 K/mcL (1.50-4.80); Lymphocytes % (Auto) 8.4 % (15.5-49.0); Mean Cell Volume 81.5 fL (80.0-100.0); Mean Corpuscular HGB Conc 31.1 g/dL (31.0-36.0); Mean Platelet Volume 10.4 fL (7.4-10.4); Monocytes # (Auto) 1.09 K/mcL (0.10-0.90); Monocytes % (Auto) 11.2 % (1.0-12.0); Neutrophils % (Auto) 76.9 % (38.0-78.0); Platelet Count 339 K/mcL (140-440); RBC 3.83 M/mcL (4.63-6.08); Red Cell Distribution Width 16.4 % (11.5-14.5); WBC 9.7 K/mcL (4.5-11.0)
[2021-08-28] MEDS: morphine 2 MG/ML VIAL IV PRN (06:44)
[2021-08-28] MEDS: INSULIN LISPRO 1 UNIT/0.01 ML UNIT SQ SCH ×4 (07:13→21:08)
[2021-08-28] MEDS: LACTATED RINGERS 1,000 ML IV SCH ×2 (07:29→17:54)
[2021-08-28 07:32] LABS: Blood Urea Nitrogen 68 mg/dL (8-23); Calcium 9.2 mg/dL (8.6-10.4); Carbon Dioxide 18 mmol/L (22-30); Chloride 103 mmol/L (96-108); Glomerular Filtration Rate 31; Glucose 148 mg/dL (70-105)
--- NOTE | 2021-08-28 07:44 | Nephrology Progress Note ---
SUBJECTIVE Subjective Patient information: Note initiated : 08/28/21 at 7:41 am Patient: Dashawn Smith 61 y/o M admitted on 08/27/21 for Nausea, Vomiting. Chief Complaint: Nausea Pertinent ROS: Feels better Weakness Constitutional Vitals: Vital Signs Temp Pulse Resp BP Pulse Ox 96.8 F L 85 16 115/69 98 08/28/21 07:00 08/28/21 07:00 08/28/21 07:00 08/28/21 07:00 08/28/21 07:00 Period Temp Pulse Resp BP Sys/Delacruz Pulse Ox Last 24 Hr 96.8 F-99.1 F 83-93 12-26 81-128/50-85 93-98 Intake and Output 08/27/21 08/28/21 08/28/21 21:59 05:59 13:59 Intake Total 787 565 990 Output Total 450 650 Balance 337 -85 990 Weight 239 lb 8 oz Intake & Output: Intake & Output 08/27/21 08/28/21 08/28/21 21:59 05:59 13:59 Intake Total 787 565 990 Output Total 450 650 Balance 337 -85 990 Weight 239 lb 8 oz Intake: IV 787 990 Lactated Ringers 1,000 ml @ 100 990 mls/hr IV .Q10H [facility] Rx#: [id number] Sodium Bicarbonate Vial 150 Meq 787 In Dextrose 5% in Water 850 ml @ 100 mls/hr IV ONCE ONE Rx#: [id number] Oral 565 Output: Void Amount 450 650 Other: Meal Soup Percent of Meal Consumed 100% Feeding Ability Independent Urine Appearance Clear Clear Urine Color Pale Bright Yellow Stool Size Large Stool Color Green Stool Consistency Loose General appearance: cooperative and no acute distress Head Head exam: Present normal inspection Eye Eye exam: Present normal appearance ENT ENT exam: Present mucous membranes moist Respiratory Respiratory exam: Absent respiratory distress Cardiovascular Cardiovascular exam: Present normal rate and rhythm GI/Abdominal GI/Abdominal exam: Present soft; Absent tenderness Extremities Exam Extremities exam: Absent joint swelling or pedal edema Neurological Exam Neurological exam: Present alert and oriented X3 Psychiatric Psychiatric exam: Present normal affect and normal mood Skin Skin exam: Present warm; Absent rash A/P Assessment and plan (1) Acute kidney injury with acute tubular necrosis: Assessment and plan: Dashawn Smith is a 61-year-old male with hypertension, hyperlipidemia, diabetes mellitus type 2, history of CVA presented to [facility] ED for nausea and vomiting. Labs were significant for metabolic acidosis and acute kidney injury. CT Abdomen and Pelvis without contrast reported a new large tumor in the left kidney (most likely a renal cell carcinoma) with metastasis to left ischium, both lung bases, left para-aortic lymph node and probably left renal vein. No hydronephrosis. He received 1L NS and 1L LR in ED. Nephrology consultation was requested for acute kidney injury. Acute kidney injury, likely acute tubular necrosis associated with dehydration from nausea, vomiting and decreased oral intake with metabolic acidosis, present on arrival. There is no recent history of IV contrast administration or NSAID use. Intravascular volume depletion suspected. Work up: Urinalysis pending. 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 Metastasis to left ischium, both lung bases, left para-aortic lymph node and probably left renal vein. Bilateral renal calculi, without hydronephrosis. Severe osteoarthritis in the right hip and moderate degenerative disc disease and arthritis in the lumbar spine. CT Chest without contrast on 08/27/21: Multiple pulmonary metastasis and multiple metastatic mediastinal and hilar lymph nodes. Progress: Serum creatinine decreased from 3.3 to 2.2 in the past 24 hours. Baseline serum creatinine: 0.9-1.2 Urine output: 1,100 ml reported since admission. Metabolic acidosis, improved. No fluid overload. No uremic symptoms. Recommendations/Plan: Anticipate no acute hemodialysis need. Avoid NSAIDs, nephrotoxic medications and IV contrast. Monitor BMP and urine output. Status: Acute (2) Metabolic acidosis: Status: Acute Time Spent With Patient Time: Total time spent is greater than 50% in coordination of care (as documented) at patient's floor/unit and/or counseling patient:
[2021-08-28] MEDS: PANTOPRAZOLE 40 MG TABLET PO SCH (09:53)
[2021-08-28] MEDS: LEVOTHYROXINE 50 MCG TABLET PO SCH (09:53)
[2021-08-28] MEDS: HEPARIN 5,000 UNIT/ML VIAL SQ SCH ×2 (09:54→21:27)
[2021-08-28] MEDS: DOCUSATE SODIUM 100 MG CAPSULE PO SCH ×2 (09:54→21:27)
[2021-08-28] MEDS: CLOPIDOGREL 75 MG TABLET PO SCH (09:54)
--- NOTE | 2021-08-28 10:13 | Internal Med Progress Note ---
SUBJECTIVE Subjective Patient information: Note initiated : 08/28/21 at 10:12 am Service Date, if different from initiated Date: [] Patient: Dashawn Smith 61 y/o M admitted on 08/27/21 for Nausea, Vomiting. Chief Complaint: [Newly dx malignancy, JULIANN] Principal diagnosis: Acute kidney injury, n/v Interval history: The patient was resting comfortably in bed. He is very pleasant, calm and cooperative. He has no active complaints. He is doing very well otherwise. Constitutional Vitals: Vital Signs Temp Pulse Resp BP Pulse Ox 96.8 F L 85 16 115/69 98 08/28/21 07:00 08/28/21 07:00 08/28/21 07:00 08/28/21 07:00 08/28/21 07:00 Period Temp Pulse Resp BP Sys/Delacruz Pulse Ox Last 24 Hr 96.8 F-99.1 F 83-93 13-26 81-128/50-80 93-98 Intake and Output 08/27/21 08/28/21 08/28/21 21:59 05:59 13:59 Intake Total 623 389 0980 Output Total 450 650 300 Balance 337 -85 990 Weight 108.635 kg Intake & Output: Intake & Output 08/27/21 08/28/21 08/28/21 21:59 05:59 13:59 Intake Total 916 133 2938 Output Total 450 650 300 Balance 337 -85 990 Weight 108.635 kg Intake: IV 787 990 Lactated Ringers 1,000 ml @ 100 990 mls/hr IV .Q10H COUNT [facility]CLUDES [facility] Rx#: [id number] Sodium Bicarbonate Vial 150 Meq 787 In Dextrose 5% in Water 850 ml @ 100 mls/hr IV ONCE ONE Rx#: [id number] Oral 565 300 Output: Void Amount 450 650 300 Other: Meal Soup Breakfast Percent of Meal Consumed 100% 75% Feeding Ability Independent Urine Appearance Clear Clear Clear Urine Color Pale Bright Yellow Bright Yellow Urine Odor Normal Stool Size Large Small Stool Color Green Black Stool Consistency Loose Soft Liquid Watery Loose # Bowel Movements 1 Head Head exam: Present atraumatic and normal inspection Eye Eye exam: Present normal appearance ENT ENT exam: Present mucous membranes moist, normal exam and normal external ear exam Neck Neck exam: Present normal inspection Respiratory Respiratory exam: Present normal respiratory exam Cardiovascular Cardiovascular exam: Present normal rate and rhythm GI/Abdominal GI/Abdominal exam: Present normal bowel sounds Back Exam Back exam: Present normal inspection Neurological Exam Neurological exam: Present alert and oriented X3 Skin Skin exam: Present intact and warm OBJ DATA Labs CBC & Chem 7: 08/28/21 05:17 08/28/21 05:17 Labs: Abnormal Lab Results 08/28/21 08/28/21 08/27/21 05:17 05:17 12:52 WBC RBC 3.83 L Hgb 9.7 L Hct 31.2 L POC Hct 30.0 L MCH 25.3 L MCHC RDW 16.4 H Neut % (Auto) Lymph % (Auto) 8.4 L Lymph # (Auto) 0.82 L [place] # (Auto) 1.09 H Absolute Neutrophils POC VBG pH POC VBG pCO2 at Temp POC VBG pO2 POC VBG HCO3 POC VBG Total CO2 POC Venous O2 Sat POC VBG Base Excess POC Chloride 110 H Carbon Dioxide 18 L POC Total CO2 17.0 L Anion Gap POC BUN 98 H BUN 68 H Creatinine 2.2 H POC Creatinine 3.2 H Glucose 148 H POC Glucose 128 H Globulin Albumin/Globulin Ratio Beta-Hydroxybutyrate Urine Appearance Urine Protein POC Troponin I 08/27/21 08/27/21 08/27/21 12:51 09:47 07:27 WBC RBC Hgb Hct POC Hct MCH MCHC RDW Neut % (Auto) Lymph % (Auto) Lymph # (Auto) [place] # (Auto) Absolute Neutrophils POC VBG pH 7.30 L 7.23 L POC VBG pCO2 at Temp 33.3 L 35.3 L POC VBG pO2 17 L 20 L POC VBG HCO3 16.3 L 14.9 L POC VBG Total CO2 17.0 L 16.0 L POC Venous O2 Sat 20.0 L 24.0 L POC VBG Base Excess -10.0 L -13.0 L POC Chloride Carbon Dioxide POC Total CO2 Anion Gap POC BUN BUN Creatinine POC Creatinine Glucose POC Glucose Globulin Albumin/Globulin Ratio Beta-Hydroxybutyrate Urine Appearance Hazy A Urine Protein 30 A POC Troponin I 08/27/21 08/27/21 08/27/21 05:49 05:48 05:48 WBC RBC Hgb Hct POC Hct MCH MCHC RDW Neut % (Auto) Lymph % (Auto) Lymph # (Auto) [place] # (Auto) Absolute Neutrophils POC VBG pH POC VBG pCO2 at Temp POC VBG pO2 POC VBG HCO3 POC VBG Total CO2 POC Venous O2 Sat POC VBG Base Excess POC Chloride Carbon Dioxide 11 L POC Total CO2 Anion Gap 20.0 H POC BUN BUN 93 H Creatinine 3.3 H POC Creatinine Glucose 164 H POC Glucose Globulin 4.4 H Albumin/Globulin Ratio 0.7 L Beta-Hydroxybutyrate 1.65 H Urine Appearance Urine Protein POC Troponin I 0.01 L 08/27/21 05:48 WBC 13.4 H RBC 4.24 L Hgb 10.8 L Hct 37.0 L POC Hct MCH 25.5 L MCHC 29.2 L RDW 16.6 H Neut % (Auto) 87.1 H Lymph % (Auto) 6.0 L Lymph # (Auto) 0.80 L [place] # (Auto) Absolute Neutrophils 11.71 H POC VBG pH POC VBG pCO2 at Temp POC VBG pO2 POC VBG HCO3 POC VBG Total CO2 POC Venous O2 Sat POC VBG Base Excess POC Chloride Carbon Dioxide POC Total CO2 Anion Gap POC BUN BUN Creatinine POC Creatinine Glucose POC Glucose Globulin Albumin/Globulin Ratio Beta-Hydroxybutyrate Urine Appearance Urine Protein POC Troponin I Meds: Medications Aspirin (Aspirin 81 Mg Tab.Chew) 81 mg PO QHS COUNT INCLUDES [facility] Clopidogrel Bisulfate (Clopidogrel 75 Mg Tablet) 75 mg PO QDAY COUNT INCLUDES [facility] Last Admin: 08/28/21 09:54 Dose: 75 mg Documented by: Dextrose (Dextrose 50% 50 Ml Vial) 0 ml IV UD PRN PRN Reason: Per Sliding Scale Diagnostic Test (Pha) (Accu-Chek 1 Each Strip) 1 each FS ACHS COUNT INCLUDES THE [facility] Last Admin: 08/28/21 07:12 Dose: 1 each Documented by: Docusate Sodium (Docusate Sodium 100 Mg Capsule) 100 mg PO BID COUNT INCLUDES THE [facility] Last Admin: 08/28/21 09:54 Dose: 100 mg Documented by: Glucose (Dextrose 31 Gm Oral.Susp) 15 gm PO PRN PRN PRN Reason: Hypoglycemia Heparin Sodium (Porcine) (Heparin 5,000 Unit/Ml Vial) 5,000 unit SQ Q12 COUNT INCLUDES [facility] Last Admin: 08/28/21 09:54 Dose: 5,000 unit Documented by: Lactated Ringer's (Lactated Ringers) 1,000 mls @ 100 mls/hr IV .Q10H COUNT INCLUDES [facility] Last Admin: 08/28/21 07:29 Dose: 100 mls/hr Documented by: Insulin Human Lispro (Insulin Lispro 1 Unit/0.01 Ml Unit) 0 unit SQ [facility] COUNT INCLUDES THE [facility]; Protocol Last Admin: 08/28/21 07:13 Dose: Not Given Documented by: Levothyroxine Sodium (Levothyroxine 50 Mcg Tablet) 50 mcg PO QDAY COUNT INCLUDES THE [facility] Last Admin: 08/28/21 09:53 Dose: 50 mcg Documented by: Morphine Sulfate (Morphine 2 Mg/Ml Vial) 2 mg IV Q5MIN PRN; Protocol PRN Reason: Chest Pain Last Admin: 08/28/21 06:44 Dose: 2 mg Documented by: Ondansetron HCl (Ondansetron 4 Mg/2 Ml Vial) 4 mg IV Q6HP PRN PRN Reason: Nausea And Vomiting Pantoprazole Sodium (Pantoprazole 40 Mg Tablet) 40 mg PO QDAY COUNT INCLUDES THE [facility] Last Admin: 08/28/21 09:53 Dose: 40 mg Documented by: Senna (Sennosides 1 Tablet) 2 tab PO [facility] Last Admin: 08/27/21 20:11 Dose: Not Given Documented by: Simvastatin (Simvastatin 10 Mg Tablet) 10 mg PO [facility] Sodium Chloride (0.9 % Sodium Chloride 10 Ml Syringe) 10 ml IV Q8 COUNT INCLUDES THE [facility] Last Admin: 08/28/21 05:00 Dose: 10 ml Documented by: A/P Assessment and plan (1) Metabolic acidosis: Status: Acute (2) JULIANN (acute kidney injury): Status: Acute (3) Uncontrolled type 2 diabetes mellitus: Status: Chronic Qualifiers: Glycemic state: with hyperglycemia Qualified Code(s): E11.65 - Type 2 diabetes mellitus with hyperglycemia (4) History of cerebrovascular accident (CVA) with residual deficit: Status: Chronic (5) Metastatic renal cell carcinoma: Status: Acute (6) Left hemiplegia: Status: Acute (7) Generalized weakness: Status: Acute (8) Nausea & vomiting: Status: Acute Narrative A/P Narrative: The patient has newly diagnosed suspected metastatic renal cell carcinoma. He will require outpatient biopsy to confirm diagnosis. Unfortunately there was no accepting facility where IR had medical oncology would be available. After tissue diagnosis is confirmed, the patient will require staging likely with a PET scan. A follow-up oncology visit will be needed to assess for treatment options and the candidacy for chemotherapy as this is nonsurgical. ECOG score to be evaluated. In the interim, he is in acute kidney injury and his antihypertensives, diuretics will be held. He will be resuscitated with IV fluids and his BMP will be monitored closely. We will hold nephrotoxic agents and renally dose medications. The patient would also benefit from outpatient follow-up with palliative care to determine goals of care. 08/28: The patient is doing better today. His creatinine has improved from 3.3- 2.2. We will continue IV fluid resuscitation. He will need to be discharged and have a biopsy performed. Discussed this during discharge rounds. Time Spent With Patient Time: Total time spent is greater than 50% in coordination of care (as documented) at patient's floor/unit and/or counseling patient: Total time spent with greater than 50% in coordination of care (as documented) at patient's floor/unit and/or counseling patient:: 25 - 35 minutes QUALITY Stroke Symptom Onset Unknown: No VTE Deep Vein Thrombosis/Pulmonary Embolism Present on Admission: No
--- NOTE | 2021-08-28 11:45 | EKG ---
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 Measurements Intervals [place] Rate: 88 P: 54 [place]: 153 QRS: -6 QRSD: 100 T: 95 QT: 359 QTc: 435 Interpretive Statements Sinus rhythm Inferior infarct, old Lateral leads are also involved Electronically Signed On 08-28-2021 11:45:13 PDT by Akash Robison M.D. /[id number]
[2021-08-28] MEDS: HYDROCODONE/APAP 7.5/325MG TABLET PO PRN ×2 (13:50→21:52)
[2021-08-28] MEDS: ASPIRIN 81 MG TAB.CHEW PO SCH (21:27)
[2021-08-28] MEDS: SIMVASTATIN 10 MG TABLET PO SCH (21:27)
[2021-08-28] MEDS: SENNOSIDES 1 TABLET PO SCH (21:28)
[2021-08-29] MEDS: LACTATED RINGERS 1,000 ML IV SCH ×2 (03:52→16:21)
[2021-08-29] MEDS: 0.9 % SODIUM CHLORIDE 10 ML SYRINGE IV SCH ×3 (06:00→20:32)
[2021-08-29 06:01] LABS: Blood Urea Nitrogen 44 mg/dL (8-23); Calcium 8.8 mg/dL (8.6-10.4); Carbon Dioxide 17 mmol/L (22-30); Chloride 102 mmol/L (96-108); Glomerular Filtration Rate 37; Glucose 131 mg/dL (70-105)
--- NOTE | 2021-08-29 07:30 | Nephrology Progress Note ---
SUBJECTIVE Subjective Patient information: Note initiated : 08/29/21 at 7:29 am Patient: Dashawn Smith 61 y/o M admitted on 08/27/21 for Nausea, Vomiting. Chief Complaint: Weakness Principal diagnosis: Acute kidney injury, n/v Pertinent ROS: Feels better Constitutional Vitals: Vital Signs Temp Pulse Resp BP Pulse Ox 97.3 F 86 12 108/67 95 08/29/21 06:43 08/29/21 03:25 08/29/21 06:43 08/29/21 06:43 08/29/21 06:43 Period Temp Pulse Resp BP Sys/Delacruz Pulse Ox Last 24 Hr 97.2 F-98.2 F 83-90 12-18 108-130/66-75 94-99 Intake and Output 08/28/21 08/29/21 08/29/21 21:59 05:59 13:59 Intake Total 2012 1237 Output Total 500 350 275 Balance 1513 887 -275 Weight 241 lb 9.6 oz Intake & Output: Intake & Output 08/28/21 08/29/21 08/29/21 21:59 05:59 13:59 Intake Total 2012 1237 Output Total 500 350 275 Balance 1513 887 -275 Weight 241 lb 9.6 oz Intake: IV 1213 997 Lactated Ringers 1,000 ml @ 100 1000 997 mls/hr IV .Q10H [facility] Rx#: [id number] Sodium Bicarbonate Vial 150 Meq 213 In Dextrose 5% in Water 850 ml @ 100 mls/hr IV ONCE ONE Rx#: [id number] Oral 800 240 Output: Void Amount 500 350 275 Other: Meal Dinner Percent of Meal Consumed 0% Urine Appearance Clear Clear Clear Urine Color Pale Pale Bright Yellow Urine Odor Normal Stool Size Small Stool Color Brown Stool Consistency Loose # of times incontinent of 2 Bowels General appearance: cooperative and no acute distress Head Head exam: Present normal inspection Eye Eye exam: Present normal appearance ENT ENT exam: Present mucous membranes moist Respiratory Respiratory exam: Absent respiratory distress Cardiovascular Cardiovascular exam: Present normal rate and rhythm GI/Abdominal GI/Abdominal exam: Present soft; Absent tenderness Extremities Exam Extremities exam: Absent joint swelling or pedal edema Neurological Exam Neurological exam: Present alert and oriented X3 Psychiatric Psychiatric exam: Present normal affect and normal mood Skin Skin exam: Present warm; Absent rash A/P Assessment and plan (1) Acute kidney injury with acute tubular necrosis: Assessment and plan: Dashawn Smith is a 61-year-old male with hypertension, hyperlipidemia, diabetes mellitus type 2, history of CVA presented to [facility] ED for nausea and vomiting. Labs were significant for metabolic acidosis and acute kidney injury. CT Abdomen and Pelvis without contrast reported a new large tumor in the left kidney (most likely a renal cell carcinoma) with metastasis to left ischium, both lung bases, left para-aortic lymph node and probably left renal vein. No hydronephrosis. He received 1L NS and 1L LR in ED. Nephrology consultation was requested for acute kidney injury. Acute kidney injury, likely acute tubular necrosis associated with dehydration from nausea, vomiting and decreased oral intake with metabolic acidosis, present on arrival, resolving. Work up: Urinalysis pending. 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 Metastasis to left ischium, both lung bases, left para-aortic lymph node and probably left renal vein. Bilateral renal calculi, without hydronephrosis. Severe osteoarthritis in the right hip and moderate degenerative disc disease and arthritis in the lumbar spine. CT Chest without contrast on 08/27/21: Multiple pulmonary metastasis and multiple metastatic mediastinal and hilar lymph nodes. Progress: Serum creatinine decreased from 2.2 to 1.9 in the past 24 hours. Baseline serum creatinine: 0.9-1.2 Urine output: 1,225 ml reported since admission. Metabolic acidosis, improved. No fluid overload. No uremic symptoms. Recommendations/Plan: Nephrology will sign off. Outpatient nephrology follow up if needed. Status: Acute (2) Metabolic acidosis: Status: Acute Time Spent With Patient Time: Total time spent is greater than 50% in coordination of care (as documented) at patient's floor/unit and/or counseling patient:
[2021-08-29] MEDS: INSULIN LISPRO 1 UNIT/0.01 ML UNIT SQ SCH ×4 (08:02→20:40)
[2021-08-29] MEDS: HEPARIN 5,000 UNIT/ML VIAL SQ SCH ×2 (09:29→20:39)
[2021-08-29] MEDS: PANTOPRAZOLE 40 MG TABLET PO SCH (09:29)
[2021-08-29] MEDS: LEVOTHYROXINE 50 MCG TABLET PO SCH (09:29)
[2021-08-29] MEDS: DOCUSATE SODIUM 100 MG CAPSULE PO SCH ×2 (09:29→20:41)
[2021-08-29] MEDS: CLOPIDOGREL 75 MG TABLET PO SCH (09:29)
[2021-08-29] MEDS: 0.9 % SODIUM CHLORIDE 1,000 ML IV SCH ×3 (09:31→20:32)
--- NOTE | 2021-08-29 09:31 | Internal Med Progress Note ---
SUBJECTIVE Subjective Patient information: Note initiated : 08/29/21 at 9:29 am Service Date, if different from initiated Date: [] Patient: Dashawn Smith 61 y/o M admitted on 08/27/21 for Nausea, Vomiting. Chief Complaint: [n/v] Principal diagnosis: Acute kidney injury, n/v Interval history: The patient is doing better day by day. He had a lot of questions about his disposition and follow-ups. He was wondering if he could be transferred to [facility] to begin oncologic care immediately. He does not have full insight into the workings of the medical world. I told him that he had several options for transfer while in the ER however all of the facilities declined. He will likely need outpatient care. He states that his family will be coming in at 11 AM today to discuss. Constitutional Vitals: Vital Signs Temp Pulse Resp BP Pulse Ox 97.3 F 86 12 108/67 95 08/29/21 06:43 08/29/21 03:25 08/29/21 06:43 08/29/21 06:43 08/29/21 06:43 Period Temp Pulse Resp BP Sys/Delacruz Pulse Ox Last 24 Hr 97.2 F-98.2 F 83-90 12-18 108-130/66-75 94-99 Intake and Output 08/28/21 08/29/21 08/29/21 21:59 05:59 13:59 Intake Total 2012 1237 Output Total 500 350 275 Balance 1513 887 -275 Weight 109.588 kg Intake & Output: Intake & Output 08/28/21 08/29/21 08/29/21 21:59 05:59 13:59 Intake Total 2012 1237 Output Total 500 350 275 Balance 1513 887 -275 Weight 109.588 kg Intake: IV 1213 997 Lactated Ringers 1,000 ml @ 100 1000 997 mls/hr IV .Q10H [facility] Rx#: [id number] Sodium Bicarbonate Vial 150 Meq 213 In Dextrose 5% in Water 850 ml @ 100 mls/hr IV ONCE ONE Rx#: [id number] Oral 800 240 Output: Void Amount 500 350 275 Other: Meal Dinner Percent of Meal Consumed 0% Urine Appearance Clear Clear Clear Urine Color Pale Pale Bright Yellow Urine Odor Normal Stool Size Small Stool Color Brown Stool Consistency Loose # of times incontinent of 2 Bowels Head Head exam: Present atraumatic and normal inspection Eye Eye exam: Present normal appearance ENT ENT exam: Present mucous membranes moist, normal exam and normal external ear exam Neck Neck exam: Present normal inspection Respiratory Respiratory exam: Present normal respiratory exam Cardiovascular Cardiovascular exam: Present normal rate and rhythm GI/Abdominal GI/Abdominal exam: Present normal bowel sounds Back Exam Back exam: Present normal inspection Neurological Exam Neurological exam: Present alert and oriented X3 Skin Skin exam: Present intact and warm OBJ DATA Labs CBC & Chem 7: 08/28/21 05:17 08/29/21 05:03 Labs: Abnormal Lab Results 08/29/21 08/28/21 08/28/21 05:03 05:17 05:17 WBC RBC 3.83 L Hgb 9.7 L Hct 31.2 L POC Hct MCH 25.3 L MCHC RDW 16.4 H Neut % (Auto) Lymph % (Auto) 8.4 L Lymph # (Auto) 0.82 L [place] # (Auto) 1.09 H Absolute Neutrophils POC VBG pH POC VBG pCO2 at Temp POC VBG pO2 POC VBG HCO3 POC VBG Total CO2 POC Venous O2 Sat POC VBG Base Excess Sodium 131 L POC Chloride Carbon Dioxide 17 L 18 L POC Total CO2 Anion Gap POC BUN BUN 44 H 68 H Creatinine 1.9 H 2.2 H POC Creatinine Glucose 131 H 148 H POC Glucose Globulin Albumin/Globulin Ratio Beta-Hydroxybutyrate Urine Appearance Urine Protein POC Troponin I 08/27/21 08/27/21 08/27/21 12:52 12:51 09:47 WBC RBC Hgb Hct POC Hct 30.0 L MCH MCHC RDW Neut % (Auto) Lymph % (Auto) Lymph # (Auto) [place] # (Auto) Absolute Neutrophils POC VBG pH 7.30 L POC VBG pCO2 at Temp 33.3 L POC VBG pO2 17 L POC VBG HCO3 16.3 L POC VBG Total CO2 17.0 L POC Venous O2 Sat 20.0 L POC VBG Base Excess -10.0 L Sodium POC Chloride 110 H Carbon Dioxide POC Total CO2 17.0 L Anion Gap POC BUN 98 H BUN Creatinine POC Creatinine 3.2 H Glucose POC Glucose 128 H Globulin Albumin/Globulin Ratio Beta-Hydroxybutyrate Urine Appearance Hazy A Urine Protein 30 A POC Troponin I 08/27/21 08/27/21 08/27/21 07:27 05:49 05:48 WBC RBC Hgb Hct POC Hct MCH MCHC RDW Neut % (Auto) Lymph % (Auto) Lymph # (Auto) [place] # (Auto) Absolute Neutrophils POC VBG pH 7.23 L POC VBG pCO2 at Temp 35.3 L POC VBG pO2 20 L POC VBG HCO3 14.9 L POC VBG Total CO2 16.0 L POC Venous O2 Sat 24.0 L POC VBG Base Excess -13.0 L Sodium POC Chloride Carbon Dioxide POC Total CO2 Anion Gap POC BUN BUN Creatinine POC Creatinine Glucose POC Glucose Globulin Albumin/Globulin Ratio Beta-Hydroxybutyrate 1.65 H Urine Appearance Urine Protein POC Troponin I 0.01 L 08/27/21 08/27/21 05:48 05:48 WBC 13.4 H RBC 4.24 L Hgb 10.8 L Hct 37.0 L POC Hct MCH 25.5 L MCHC 29.2 L RDW 16.6 H Neut % (Auto) 87.1 H Lymph % (Auto) 6.0 L Lymph # (Auto) 0.80 L [place] # (Auto) Absolute Neutrophils 11.71 H POC VBG pH POC VBG pCO2 at Temp POC VBG pO2 POC VBG HCO3 POC VBG Total CO2 POC Venous O2 Sat POC VBG Base Excess Sodium POC Chloride Carbon Dioxide 11 L POC Total CO2 Anion Gap 20.0 H POC BUN BUN 93 H Creatinine 3.3 H POC Creatinine Glucose 164 H POC Glucose Globulin 4.4 H Albumin/Globulin Ratio 0.7 L Beta-Hydroxybutyrate Urine Appearance Urine Protein POC Troponin I Meds: Medications Hydrocodone Bitart/Acetaminophen (Hydrocodone/Apap 7.5/325mg Tablet) 1 tab PO BIDP PRN; Protocol PRN Reason: Per Pain Protocol Last Admin: 08/28/21 21:52 Dose: 1 tab Documented by: Aspirin (Aspirin 81 Mg Tab.Chew) 81 mg PO QHS [facility] Last Admin: 08/28/21 21:27 Dose: 81 mg Documented by: Clopidogrel Bisulfate (Clopidogrel 75 Mg Tablet) 75 mg PO QDAY [facility] Last Admin: 08/28/21 09:54 Dose: 75 mg Documented by: Dextrose (Dextrose 50% 50 Ml Vial) 0 ml IV UD PRN PRN Reason: Per Sliding Scale Diagnostic Test (Pha) (Accu-Chek 1 Each Strip) 1 each FS ACHS [facility] Last Admin: 08/29/21 08:01 Dose: 1 each Documented by: Docusate Sodium (Docusate Sodium 100 Mg Capsule) 100 mg PO BID [facility] Last Admin: 08/28/21 21:27 Dose: Not Given Documented by: Glucose (Dextrose 31 Gm Oral.Susp) 15 gm PO PRN PRN PRN Reason: Hypoglycemia Heparin Sodium (Porcine) (Heparin 5,000 Unit/Ml Vial) 5,000 unit SQ Q12 [facility] Last Admin: 08/28/21 21:27 Dose: 5,000 unit Documented by: Lactated Ringer's (Lactated Ringers) 1,000 mls @ 100 mls/hr IV .Q10H [facility] Last Admin: 08/29/21 03:52 Dose: 100 mls/hr Documented by: Sodium Chloride (Sodium Chloride 0.9%) 1,000 mls @ 100 mls/hr IV .Q10H [facility] Insulin Human Lispro (Insulin Lispro 1 Unit/0.01 Ml Unit) 0 unit SQ [facility]; Protocol Last Admin: 08/29/21 08:02 Dose: Not Given Documented by: Levothyroxine Sodium (Levothyroxine 50 Mcg Tablet) 50 mcg PO QDAY [facility] Last Admin: 08/28/21 09:53 Dose: 50 mcg Documented by: Ondansetron HCl (Ondansetron 4 Mg/2 Ml Vial) 4 mg IV Q6HP PRN PRN Reason: Nausea And Vomiting Last Admin: 08/28/21 16:41 Dose: 4 mg Documented by: Pantoprazole Sodium (Pantoprazole 40 Mg Tablet) 40 mg PO QDAY [facility] Last Admin: 08/28/21 09:53 Dose: 40 mg Documented by: Senna (Sennosides 1 Tablet) 2 tab PO [facility] Last Admin: 08/28/21 21:28 Dose: Not Given Documented by: Simvastatin (Simvastatin 10 Mg Tablet) 10 mg PO [facility] Last Admin: 08/28/21 21:27 Dose: 10 mg Documented by: Sodium Chloride (0.9 % Sodium Chloride 10 Ml Syringe) 10 ml IV Q8 [facility] Last Admin: 08/29/21 06:00 Dose: 10 ml Documented by: A/P Assessment and plan (1) Metabolic acidosis: Status: Acute (2) JULIANN (acute kidney injury): Status: Acute (3) Uncontrolled type 2 diabetes mellitus: Status: Chronic Qualifiers: Glycemic state: with hyperglycemia Qualified Code(s): E11.65 - Type 2 diabetes mellitus with hyperglycemia (4) History of cerebrovascular accident (CVA) with residual deficit: Status: Chronic (5) Metastatic renal cell carcinoma: Status: Acute (6) Left hemiplegia: Status: Acute (7) Generalized weakness: Status: Acute (8) Nausea & vomiting: Status: Acute Narrative A/P Narrative: The patient has newly diagnosed suspected metastatic renal cell carcinoma. He will require outpatient biopsy to confirm diagnosis. Unfortunately there was no accepting facility where IR had medical oncology would be available. After tissue diagnosis is confirmed, the patient will require staging likely with a PET scan. A follow-up oncology visit will be needed to assess for treatment options and the candidacy for chemotherapy as this is nonsurgical. ECOG score to be evaluated. In the interim, he is in acute kidney injury and his antihypertensives, diuretics will be held. He will be resuscitated with IV fluids and his BMP will be monitored closely. We will hold nephrotoxic agents and renally dose medications. The patient would also benefit from outpatient follow-up with palliative care to determine goals of care. 08/28: The patient is doing better today. His creatinine has improved from 3.3- 2.2. We will continue IV fluid resuscitation. He will need to be discharged and have a biopsy performed. Discussed this during discharge rounds. 08/29: The patient is clinically status quo. His kidney function continues to improve with IV fluids. His creatinine is now down to 1.9. Continue LR at 100 cc an hour. At this point, the PICC if she was going to be disposition. We wi ll have to discuss with case management and social work. Time Spent With Patient Time: Total time spent is greater than 50% in coordination of care (as documented) at patient's floor/unit and/or counseling patient: Total time spent with greater than 50% in coordination of care (as documented) at patient's floor/unit and/or counseling patient:: 25 - 35 minutes QUALITY Stroke Symptom Onset Unknown: No VTE Deep Vein Thrombosis/Pulmonary Embolism Present on Admission: No
[2021-08-29] MEDS: HYDROCODONE/APAP 7.5/325MG TABLET PO PRN ×3 (09:37→20:40)
[2021-08-29] MEDS: SENNOSIDES 1 TABLET PO SCH (20:40)
[2021-08-29] MEDS: SIMVASTATIN 10 MG TABLET PO SCH (20:40)
[2021-08-29] MEDS: ASPIRIN 81 MG TAB.CHEW PO SCH (20:40)
[2021-08-30] MEDS: 0.9 % SODIUM CHLORIDE 10 ML SYRINGE IV SCH ×3 (04:19→21:48)
[2021-08-30] MEDS: 0.9 % SODIUM CHLORIDE 1,000 ML IV SCH ×3 (05:27→15:37)
[2021-08-30] MEDS: INSULIN LISPRO 1 UNIT/0.01 ML UNIT SQ SCH ×4 (07:02→21:19)
[2021-08-30] MEDS: DOCUSATE SODIUM 100 MG CAPSULE PO SCH ×3 (08:03→21:18)
[2021-08-30] MEDS: CLOPIDOGREL 75 MG TABLET PO SCH (08:40)
[2021-08-30] MEDS: HEPARIN 5,000 UNIT/ML VIAL SQ SCH ×2 (08:40→20:56)
[2021-08-30] MEDS: LEVOTHYROXINE 50 MCG TABLET PO SCH (08:41)
[2021-08-30] MEDS: PANTOPRAZOLE 40 MG TABLET PO SCH (08:41)
--- NOTE | 2021-08-30 10:54 | Internal Med Progress Note ---
SUBJECTIVE Subjective Patient information: Note initiated : 08/30/21 at 10:51 am Service Date, if different from initiated Date: [as above] Patient: Dashawn Smith 61 y/o M admitted on 08/27/21 for Nausea, Vomiting. Chief Complaint: [Failure to thrive] Principal diagnosis: Acute kidney injury, n/v, newly dx malignancy (stage IV) Interval history: The patient's daughter drove in from [place]. We had a goals of care discussion yesterday. We discussed disposition. She understands that he was not excepted for transfer while in the ER. He will likely need to be discharged and have outpatient work-up for biopsy, staging including PET/CT, and follow-up with oncology. The primary care doctor will be notified tomorrow morning. Disposition remains a challenge at this time. Constitutional Vitals: Vital Signs Temp Pulse Resp BP Pulse Ox 97.5 F 70 20 114/69 97 08/30/21 07:22 08/30/21 04:10 08/30/21 07:22 08/30/21 07:22 08/30/21 07:22 Period Temp Pulse Resp BP Sys/Delacruz Pulse Ox Last 24 Hr 97.2 F-98.2 F 70-94 16-20 113-128/69-81 95-97 Intake and Output 08/29/21 08/30/21 08/30/21 21:59 05:59 13:59 Intake Total 1377 1300 Output Total 225 Balance 1377 1075 Weight 112.083 kg Intake & Output: Intake & Output 08/29/21 08/30/21 08/30/21 21:59 05:59 13:59 Intake Total 1377 1300 Output Total 225 Balance 1377 1075 Weight 112.083 kg Intake: IV 957 900 Sodium Chloride 0.9% 1,000 ml @ 957 900 100 mls/hr IV .Q10H [facility] Rx#: [id number] Oral 420 400 Output: Void Amount 225 Other: Meal Dinner V8 Percent of Meal Consumed 75% 75% Feeding Ability Assist with Tray Set Up Independent Urine Appearance Clear Urine Color Bright Yellow # Voids 1 Head Head exam: Present atraumatic and normal inspection Eye Eye exam: Present normal appearance ENT ENT exam: Present mucous membranes moist, normal exam and normal external ear exam Neck Neck exam: Present normal inspection Respiratory Respiratory exam: Present normal respiratory exam Cardiovascular Cardiovascular exam: Present normal rate and rhythm GI/Abdominal GI/Abdominal exam: Present normal bowel sounds Back Exam Back exam: Present normal inspection Neurological Exam Neurological exam: Present alert and oriented X3 Skin Skin exam: Present intact and warm OBJ DATA Labs CBC & Chem 7: 08/28/21 05:17 08/29/21 05:03 Labs: Abnormal Lab Results 08/29/21 08/28/21 08/28/21 05:03 05:17 05:17 RBC 3.83 L Hgb 9.7 L Hct 31.2 L POC Hct MCH 25.3 L RDW 16.4 H Lymph % (Auto) 8.4 L Lymph # (Auto) 0.82 L [place] # (Auto) 1.09 H POC VBG pH POC VBG pCO2 at Temp POC VBG pO2 POC VBG HCO3 POC VBG Total CO2 POC Venous O2 Sat POC VBG Base Excess Sodium 131 L POC Chloride Carbon Dioxide 17 L 18 L POC Total CO2 POC BUN BUN 44 H 68 H Creatinine 1.9 H 2.2 H POC Creatinine Glucose 131 H 148 H POC Glucose Urine Appearance Urine Protein 08/27/21 08/27/21 08/27/21 12:52 12:51 09:47 RBC Hgb Hct POC Hct 30.0 L MCH RDW Lymph % (Auto) Lymph # (Auto) [place] # (Auto) POC VBG pH 7.30 L POC VBG pCO2 at Temp 33.3 L POC VBG pO2 17 L POC VBG HCO3 16.3 L POC VBG Total CO2 17.0 L POC Venous O2 Sat 20.0 L POC VBG Base Excess -10.0 L Sodium POC Chloride 110 H Carbon Dioxide POC Total CO2 17.0 L POC BUN 98 H BUN Creatinine POC Creatinine 3.2 H Glucose POC Glucose 128 H Urine Appearance Hazy A Urine Protein 30 A Meds: Medications Hydrocodone Bitart/Acetaminophen (Hydrocodone/Apap 7.5/325mg Tablet) 1 tab PO BIDP PRN; Protocol PRN Reason: Per Pain Protocol Last Admin: 08/29/21 20:40 Dose: 1 tab Documented by: Aspirin (Aspirin 81 Mg Tab.Chew) 81 mg PO QHS [facility] Last Admin: 08/29/21 20:40 Dose: 81 mg Documented by: Clopidogrel Bisulfate (Clopidogrel 75 Mg Tablet) 75 mg PO QDAY [facility] Last Admin: 08/30/21 08:40 Dose: 75 mg Documented by: Dextrose (Dextrose 50% 50 Ml Vial) 0 ml IV UD PRN PRN Reason: Per Sliding Scale Diagnostic Test (Pha) (Accu-Chek 1 Each Strip) 1 each FS [facility] Last Admin: 08/30/21 07:02 Dose: 1 each Documented by: Docusate Sodium (Docusate Sodium 100 Mg Capsule) 100 mg PO BID [facility] Last Admin: 08/30/21 08:03 Dose: Not Given Documented by: Glucose (Dextrose 31 Gm Oral.Susp) 15 gm PO PRN PRN PRN Reason: Hypoglycemia Heparin Sodium (Porcine) (Heparin 5,000 Unit/Ml Vial) 5,000 unit SQ Q12 [facility] Last Admin: 08/30/21 08:40 Dose: 5,000 unit Documented by: Sodium Chloride (Sodium Chloride 0.9%) 1,000 mls @ 100 mls/hr IV .Q10H [facility] Last Admin: 08/30/21 05:32 Dose: 100 mls/hr Documented by: Insulin Human Lispro (Insulin Lispro 1 Unit/0.01 Ml Unit) 0 unit SQ [facility]; Protocol Last Admin: 08/30/21 07:02 Dose: Not Given Documented by: Levothyroxine Sodium (Levothyroxine 50 Mcg Tablet) 50 mcg PO QDAY [facility] Last Admin: 08/30/21 08:41 Dose: 50 mcg Documented by: Ondansetron HCl (Ondansetron 4 Mg/2 Ml Vial) 4 mg IV Q6HP PRN PRN Reason: Nausea And Vomiting Last Admin: 08/28/21 16:41 Dose: 4 mg Documented by: Pantoprazole Sodium (Pantoprazole 40 Mg Tablet) 40 mg PO QDAY [facility] Last Admin: 08/30/21 08:41 Dose: 40 mg Documented by: Senna (Sennosides 1 Tablet) 2 tab PO [facility] Last Admin: 08/29/21 20:40 Dose: Not Given Documented by: Simvastatin (Simvastatin 10 Mg Tablet) 10 mg PO [facility] Last Admin: 08/29/21 20:40 Dose: 10 mg Documented by: Sodium Chloride (0.9 % Sodium Chloride 10 Ml Syringe) 10 ml IV Q8 [facility] Last Admin: 08/30/21 04:19 Dose: 10 ml Documented by: A/P Assessment and plan (1) Metabolic acidosis: Status: Acute (2) JULIANN (acute kidney injury): Status: Acute (3) Uncontrolled type 2 diabetes mellitus: Status: Chronic Qualifiers: Glycemic state: with hyperglycemia Qualified Code(s): E11.65 - Type 2 diabetes mellitus with hyperglycemia (4) History of cerebrovascular accident (CVA) with residual deficit: Status: Chronic (5) Metastatic renal cell carcinoma: Status: Acute (6) Left hemiplegia: Status: Acute (7) Generalized weakness: Status: Acute (8) Nausea & vomiting: Status: Acute Narrative A/P Narrative: The patient has newly diagnosed suspected metastatic renal cell carcinoma. He will require outpatient biopsy to confirm diagnosis. Unfortunately there was no accepting facility where IR had medical oncology would be available. After tissue diagnosis is confirmed, the patient will require staging likely with a PET scan. A follow-up oncology visit will be needed to assess for treatment options and the candidacy for chemotherapy as this is nonsurgical. ECOG score to be evaluated. In the interim, he is in acute kidney injury and his antihypertensives, diuretics will be held. He will be resuscitated with IV fluids and his BMP will be monitored closely. We will hold nephrotoxic agents and renally dose medications. The patient would also benefit from outpatient follow-up with palliative care to determine goals of care. 08/28: The patient is doing better today. His creatinine has improved from 3.3- 2.2. We will continue IV fluid resuscitation. He will need to be discharged and have a biopsy performed. Discussed this during discharge rounds. 08/29: The patient is clinically status quo. His kidney function continues to improve with IV fluids. His creatinine is now down to 1.9. Continue LR at 100 cc an hour. At this point, the PICC if she was going to be disposition. We will have to discuss with case management and social work. 08/30: From my conversation with the respiratory care program director, the patient will be discharging to residential facility for rehabilitation. Although he has hemiplegia and is wheelchair-bound, he is normally able to transfer and is self- sufficient living independently. He is too weak to live at home by himself at this time. Time Spent With Patient Time: Total time spent is greater than 50% in coordination of care (as documented) at patient's floor/unit and/or counseling patient: Total time spent with greater than 50% in coordination of care (as documented) at patient's floor/unit and/or counseling patient:: 25 - 35 minutes QUALITY Stroke Symptom Onset Unknown: No VTE Deep Vein Thrombosis/Pulmonary Embolism Present on Admission: No
[2021-08-30 11:59] LABS: Blood Urea Nitrogen 25 mg/dL (8-23); Calcium 8.5 mg/dL (8.6-10.4); Carbon Dioxide 20 mmol/L (22-30); Chloride 105 mmol/L (96-108); Glomerular Filtration Rate 45; Glucose 178 mg/dL (70-105)
[2021-08-30] MEDS: HYDROCODONE/APAP 7.5/325MG TABLET PO PRN ×2 (12:50→21:11)
[2021-08-30] MEDS: ASPIRIN 81 MG TAB.CHEW PO SCH (20:55)
[2021-08-30] MEDS: SENNOSIDES 1 TABLET PO SCH ×2 (20:56→21:18)
[2021-08-30] MEDS: SIMVASTATIN 10 MG TABLET PO SCH (20:56)
[2021-08-31] MEDS: 0.9 % SODIUM CHLORIDE 1,000 ML IV SCH ×3 (01:41→20:58)
[2021-08-31] MEDS: 0.9 % SODIUM CHLORIDE 10 ML SYRINGE IV SCH ×3 (05:56→20:53)
[2021-08-31] MEDS: INSULIN LISPRO 1 UNIT/0.01 ML UNIT SQ SCH ×5 (07:33→20:57)
[2021-08-31] MEDS: DOCUSATE SODIUM 100 MG CAPSULE PO SCH ×2 (07:33→20:50)
[2021-08-31] MEDS: CLOPIDOGREL 75 MG TABLET PO SCH (07:40)
[2021-08-31] MEDS: HEPARIN 5,000 UNIT/ML VIAL SQ SCH ×2 (07:40→20:48)
[2021-08-31] MEDS: PANTOPRAZOLE 40 MG TABLET PO SCH (07:40)
[2021-08-31] MEDS: LEVOTHYROXINE 50 MCG TABLET PO SCH (07:40)
[2021-08-31] MEDS: HYDROCODONE/APAP 7.5/325MG TABLET PO PRN ×2 (09:40→21:02)
--- NOTE | 2021-08-31 12:27 | Internal Med Progress Note ---
SUBJECTIVE Subjective Patient information: Note initiated : 08/31/21 at 12:22 pm Service Date, if different from initiated Date: [as above] Patient: Dashawn Smith 61 y/o M admitted on 08/27/21 for Nausea, Vomiting. Chief Complaint: [] Principal diagnosis: Acute kidney injury, n/v, newly dx malignancy (stage IV) Interval history: The patient was resting comfortably in bed. He is calm and cooperative. He has no active complaints or concerns. Discussed the case with RN. Constitutional Vitals: Vital Signs Temp Pulse Resp BP Pulse Ox 97.1 F 85 16 128/79 99 08/31/21 11:58 08/31/21 11:58 08/31/21 11:58 08/31/21 11:58 08/31/21 11:58 Period Temp Pulse Resp BP Sys/Delacruz Pulse Ox Last 24 Hr 97.1 F-98.9 F 83-87 16-20 124-138/74-82 92-99 Intake and Output 08/30/21 08/31/21 08/31/21 21:59 05:59 13:59 Intake Total 1500 1000 952 Output Total 250 200 Balance 1250 800 952 Weight 113.88 kg Intake & Output: Intake & Output 08/30/21 08/31/21 08/31/21 21:59 05:59 13:59 Intake Total 1500 1000 952 Output Total 250 200 Balance 1250 800 952 Weight 113.88 kg Intake: IV 1000 1000 952 Sodium Chloride 0.9% 1,000 ml @ 1000 1000 952 100 mls/hr IV .Q10H [facility] Rx#: [id number] Oral 500 Output: Void Amount 250 200 Other: Meal Breakfast Percent of Meal Consumed 75% Feeding Ability Independent Stool Size Small Moderate Small Stool Color Brown Brown Brown Stool Consistency Soft Soft # Bowel Movements 1 Head Head exam: Present atraumatic and normal inspection Eye Eye exam: Present normal appearance ENT ENT exam: Present mucous membranes moist, normal exam and normal external ear exam Neck Neck exam: Present normal inspection Respiratory Respiratory exam: Present normal respiratory exam Cardiovascular Cardiovascular exam: Present normal rate and rhythm GI/Abdominal GI/Abdominal exam: Present normal bowel sounds Back Exam Back exam: Present normal inspection Neurological Exam Neurological exam: Present alert and oriented X3 Skin Skin exam: Present intact and warm OBJ DATA Labs CBC & Chem 7: 08/28/21 05:17 08/30/21 10:16 Labs: Abnormal Lab Results 08/30/21 08/29/21 10:16 05:03 Sodium 131 L Carbon Dioxide 20 L 17 L BUN 25 H 44 H Creatinine 1.6 H 1.9 H Glucose 178 H 131 H Calcium 8.5 L Meds: Medications Hydrocodone Bitart/Acetaminophen (Hydrocodone/Apap 7.5/325mg Tablet) 1 tab PO BIDP PRN; Protocol PRN Reason: Per Pain Protocol Last Admin: 08/31/21 09:40 Dose: 1 tab Documented by: Aspirin (Aspirin 81 Mg Tab.Chew) 81 mg PO QHS [facility] Last Admin: 08/30/21 20:55 Dose: 81 mg Documented by: Clopidogrel Bisulfate (Clopidogrel 75 Mg Tablet) 75 mg PO QDAY [facility] Last Admin: 08/31/21 07:40 Dose: 75 mg Documented by: Dextrose (Dextrose 50% 50 Ml Vial) 0 ml IV UD PRN PRN Reason: Per Sliding Scale Diagnostic Test (Pha) (Accu-Chek 1 Each Strip) 1 each FS [facility] Last Admin: 08/31/21 11:13 Dose: 1 each Documented by: Docusate Sodium (Docusate Sodium 100 Mg Capsule) 100 mg PO BID [facility] Last Admin: 08/31/21 07:33 Dose: Not Given Documented by: Glucose (Dextrose 31 Gm Oral.Susp) 15 gm PO PRN PRN PRN Reason: Hypoglycemia Heparin Sodium (Porcine) (Heparin 5,000 Unit/Ml Vial) 5,000 unit SQ Q12 [facility] Last Admin: 08/31/21 07:40 Dose: 5,000 unit Documented by: Sodium Chloride (Sodium Chloride 0.9%) 1,000 mls @ 100 mls/hr IV .Q10H [facility] Last Admin: 08/31/21 11:12 Dose: 100 mls/hr Documented by: Insulin Human Lispro (Insulin Lispro 1 Unit/0.01 Ml Unit) 0 unit SQ [facility]; Protocol Last Admin: 08/31/21 11:36 Dose: 4 units Documented by: Levothyroxine Sodium (Levothyroxine 50 Mcg Tablet) 50 mcg PO QDAY [facility] Last Admin: 08/31/21 07:40 Dose: 50 mcg Documented by: Ondansetron HCl (Ondansetron 4 Mg/2 Ml Vial) 4 mg IV Q6HP PRN PRN Reason: Nausea And Vomiting Last Admin: 08/28/21 16:41 Dose: 4 mg Documented by: Pantoprazole Sodium (Pantoprazole 40 Mg Tablet) 40 mg PO QDAY [facility] Last Admin: 08/31/21 07:40 Dose: 40 mg Documented by: Senna (Sennosides 1 Tablet) 2 tab PO [facility] Last Admin: 08/30/21 21:18 Dose: Not Given Documented by: Simvastatin (Simvastatin 10 Mg Tablet) 10 mg PO [facility] Last Admin: 08/30/21 20:56 Dose: 10 mg Documented by: Sodium Chloride (0.9 % Sodium Chloride 10 Ml Syringe) 10 ml IV Q8 [facility] Last Admin: 08/31/21 05:56 Dose: Not Given Documented by: A/P Assessment and plan (1) Metabolic acidosis: Status: Acute (2) JULIANN (acute kidney injury): Status: Acute (3) Uncontrolled type 2 diabetes mellitus: Status: Chronic Qualifiers: Glycemic state: with hyperglycemia Qualified Code(s): E11.65 - Type 2 diabetes mellitus with hyperglycemia (4) History of cerebrovascular accident (CVA) with residual deficit: Status: Chronic (5) Metastatic renal cell carcinoma: Status: Acute (6) Left hemiplegia: Status: Acute (7) Generalized weakness: Status: Acute (8) Nausea & vomiting: Status: Acute Narrative A/P Narrative: The patient has newly diagnosed suspected metastatic renal cell carcinoma. He will require outpatient biopsy to confirm diagnosis. Unfortunately there was no accepting facility where IR [facility] medical oncology would be available. After tissue diagnosis is confirmed, the patient will require staging likely with a PET scan. A follow-up oncology visit will be needed to assess for treatment options and the candidacy for chemotherapy as this is nonsurgical. ECOG score to be evaluated. In the interim, he is in acute kidney injury and his antihypertensives, diuretics will be held. He will be resuscitated with IV fluids and his BMP will be monitored closely. We will hold nephrotoxic agents and renally dose medications. The patient would also benefit from outpatient follow-up with palliative care to determine goals of care. 08/28: The patient is doing better today. His creatinine has improved from 3.3- 2.2. We will continue IV fluid resuscitation. He will need to be discharged and have a biopsy performed. Discussed this during discharge rounds. 08/29: The patient is clinically status quo. His kidney function continues to improve with IV fluids. His creatinine is now down to 1.9. Continue LR at 100 cc an hour. At this point, the PICC if she was going to be disposition. We will have to discuss with case management and social work. 08/30: From my conversation with the dog daycare provider, the patient will be d ischarging to assisted facility for rehabilitation. Although he has hemiplegia and is wheelchair-bound, he is normally able to transfer and is self- sufficient living independently. He is too weak to live at home by himself at this time. 08/31: The patient is medically status quo and awaiting discharge to assisted facility. Disposition was discussed during multidisciplinary rounds. Continue management as above. Time Spent With Patient Time: Total time spent is greater than 50% in coordination of care (as documented) at patient's floor/unit and/or counseling patient: Total time spent with greater than 50% in coordination of care (as documented) at patient's floor/unit and/or counseling patient:: 25 - 35 minutes QUALITY Stroke Symptom Onset Unknown: No VTE Deep Vein Thrombosis/Pulmonary Embolism Present on Admission: No
[2021-08-31 13:53] LABS: Blood Urea Nitrogen 17 mg/dL (8-23); Calcium 8.5 mg/dL (8.6-10.4); Carbon Dioxide 19 mmol/L (22-30); Chloride 104 mmol/L (96-108); Glomerular Filtration Rate 49; Glucose 188 mg/dL (70-105)
[2021-08-31] MEDS: ASPIRIN 81 MG TAB.CHEW PO SCH (20:47)
[2021-08-31] MEDS: SIMVASTATIN 10 MG TABLET PO SCH (20:47)
[2021-08-31] MEDS: SENNOSIDES 1 TABLET PO SCH (20:53)
[2021-09-01] MEDS: 0.9 % SODIUM CHLORIDE 10 ML SYRINGE IV SCH (06:40)
[2021-09-01] MEDS: 0.9 % SODIUM CHLORIDE 1,000 ML IV SCH (07:22)
[2021-09-01] MEDS: INSULIN LISPRO 1 UNIT/0.01 ML UNIT SQ SCH (07:22)
--- NOTE | 2021-09-01 08:12 | Discharge Summary ---
Discharge Provider Provider Patient information: Note initiated : 09/01/21 at 8:11 am Service Date, if different from initiated Date: [as above] Patient: Dashawn Smith 61 y/o M admitted on 08/27/21 for Nausea, Vomiting. Chief Complaint: [Nausea, weakness] Date of admission: 08/27/21 19:30 Discharge date: 09/01/21 Primary care physician: Geovanny Lopez PA-C Admitting clinician: Kathy Holley Consults: 08/27/21 Consult to Physician [CONS] Stat Comment: Consulting Provider: Bubba Pierre Reason For Exam: Physician to Consult Consult to Physician [CONS] Stat Comment: second one Consulting Provider: Kathy Holley Reason For Exam: Physician to Consult 08/31/21 13:27 Consult to Physician [CONS] Routine Comment: Consulting Provider: Saroj Fox Reason For Exam: Physician to Consult Discharging clinician: Kathy Holley Discharge Meds Discharge Medications Home Medications aspirin 81 mg tablet,delayed release 81 mg PO QHS tab 10/20/14 [History Confirmed 08/27/21 Last Taken 08/23/21 19:00] disable parking permit #1 each 09/11/15 [Rx Confirmed 08/31/21 Last Taken Unknown] MATTRESS #1 08/10/16 [Rx Confirmed 08/31/21 Last Taken Unknown] blood-glucose meter (Contour Next Meter) #1 each 07/04/18 [Rx Confirmed 08/31/21 Last Taken Unknown] lancets (Comfort Lancets) #100 each 07/04/18 [Rx Confirmed 08/31/21 Last Taken Unknown] pantoprazole 40 mg tablet,delayed release 40 mg PO QDAY tab 05/29/20 [History Confirmed 08/27/21 Last Taken 08/23/21 11:00] pravastatin 20 mg tablet 20 mg PO QHS #90 tab 04/14/21 [Rx Confirmed 08/27/21 Last Taken 08/23/21 19:00] amlodipine 5 mg tablet 5 mg PO QDAY #90 tab 07/16/21 [Rx Confirmed 08/27/21 Last Taken 08/23/21 11:00] clopidogrel 75 mg tablet 75 mg PO QDAY #90 tab 07/16/21 [Rx Confirmed 08/27/21 Last Taken 08/23/21 11:00] levothyroxine 50 mcg tablet 50 mcg PO QDAY #90 tab 07/16/21 [Rx Confirmed 08/27/21 Last Taken 08/23/21 11:00] metformin 500 mg tablet,extended release 24 hr 1,000 mg PO BID #360 tab 07/16/21 [Rx Confirmed 08/27/21 Last Taken 08/24/21 19:00] dulaglutide 1.5 mg/0.5 mL subcutaneous pen injector (Trulicity) 1.5 mg (0.5 mL) SUB-Q QWEEK 120 Days #8 ml 07/28/21 [Rx Confirmed 08/27/21 Last Taken 08/25/21 08:00] COURSE Hospital Course Hospital course: Mr. Smith is a 61 year old M with a past medical history significant for prior stroke with residual dense left hemiplegia, diabetes mellitus type 2, and hypothyroidism who presents to the hospital with 4-day history of nausea, vomiting, and progressive weakness. The patient states that he has been unable to keep any food down. Despite being unable to eat or drink, the patient continued to take all of his medications somewhat included diuretics and antihypertensives as well as metformin. He lives alone and is mainly wheelchair dependent. His brother comes to visit and helps as well. He decided to come to the ER today as he was feeling very weak. On presentation he was hemodynamically stable and afebrile. Work-up included CT chest abdomen and pelvis which revealed large tumor in the left kidney which is most likely renal cell carcinoma that has metastasized to the left ischium, with numerous lung nodules and hilar lymphadenopathy. His lab work revealed acute kidney injury with a creatinine of 3.3. Initially the goal was to transfer the patient to a tertiary level facility with medical oncology, and possibly interventional radiology if there was concern for postobstructive uropathy. There is no accepting facility available and thus the hospital service was asked admit the patient for further management and evaluation of his acute kidney injury in the setting of newly diagnosed metastatic RCC. The patient has newly diagnosed suspected metastatic renal cell carcinoma. He will require outpatient biopsy to confirm diagnosis. Unfortunately there was no accepting facility where IR had medical oncology would be available. After tissue diagnosis is confirmed, the patient will require staging likely with a PET scan. A follow-up oncology visit will be needed to assess for treatment options and the candidacy for chemotherapy as this is nonsurgical. ECOG score to be evaluated. In the interim, he is in acute kidney injury and his antihypertensives, diuretics will be held. He will be resuscitated with IV fluids and his BMP will be monitored closely. We will hold nephrotoxic agents and renally dose medications. The patient would also benefit from outpatient follow-up with palliative care to determine goals of care. 08/28: The patient is doing better today. His creatinine has improved from 3.3- 2.2. We will continue IV fluid resuscitation. He will need to be discharged and have a biopsy performed. Discussed this during discharge rounds. 08/29: The patient is clinically status quo. His kidney function continues to improve with IV fluids. His creatinine is now down to 1.9. Continue LR at 100 cc an hour. At this point, the PICC if she was going to be disposition. We will have to discuss with case management and social work. 08/30: From my conversation with the live in caregiver, the patient will be discharging to half-way facility for rehabilitation. Although he has hemiplegia and is wheelchair-bound, he is normally able to transfer and is self- sufficient living independently. He is too weak to live at home by himself at this time. 08/31: The patient is medically status quo and awaiting discharge to half-way facility. Disposition was discussed during multidisciplinary rounds. Continue management as above. 09/01: The patient will be discharged to half-way facility today. He will need to follow-up with medical oncology and his primary care physician to coordinate care. Of note, the patient's diuretic, and lisinopril have been discontinued in the setting of renal dysfunction. Discharge diagnosis: JULIANN, newly diagnosed metastatic cancer of unknown primary Time Spent with Patient Time attestation: Total time spent providing and/or coordinating discharge services: Time spent: Greater than 30 minutes EXAM Constitutional Vitals: Temp Pulse Resp BP Pulse Ox 96.6 F L 65 20 146/87 96 09/01/21 07:59 09/01/21 07:59 09/01/21 07:59 09/01/21 07:59 09/01/21 07:59 General appearance: average body habitus Head Head exam: Present atraumatic, normal inspection and normocephalic Eye Eye exam: Present EOMI, normal appearance and PERRL; Absent conjunctival injection ENT ENT exam: Present normal exam; Absent mucous membranes dry Neck Neck exam: Present full ROM; Absent lymphadenopathy Respiratory Respiratory exam: Present normal respiratory exam and CTAB; Absent decreased breath sounds, respiratory distress or wheezes Cardiovascular Cardiovascular exam: Present normal rate and rhythm and RRR; Absent JVD GI/Abdominal GI/Abdominal exam: Present normal bowel sounds and soft; Absent diminished bowel sounds, distended, guarding, mass, rebound or tenderness Neurological Exam Neurological exam: Present alert, CN II-XII intact and oriented X3 Psychiatric Psychiatric exam: Present normal affect and normal mood Skin Skin exam: Present intact and warm; Absent erythema, pallor, petechiae or rash Discharge Data Data Completed and Pending Labs on day of discharge: Labs from last 24 hours 08/31/21 09:55 Sodium 137 Potassium 4.0 Chloride 104 Carbon Dioxide 19 L Anion Gap 14.0 BUN 17 Creatinine 1.5 H GFR Calculation 49 Glucose 188 H Calcium 8.5 L Discharge Plan Patient/Caregiver Discharge Instructions Activity: as per physical therapy Diet: Consistent Carbohydrate Prescriptions: Continued (DME) disable parking permit Qty: 1 0RF Rx Instructions: use as directed. pravastatin 20 mg tablet 20 mg PO QHS Qty: 90 1RF metformin 500 mg tablet extended release 24 hr 1,000 mg PO BID Qty: 360 1RF clopidogrel 75 mg tablet 75 mg PO QDAY Qty: 90 1RF amlodipine 5 mg tablet 5 mg PO QDAY Qty: 90 1RF levothyroxine 50 mcg tablet 50 mcg PO QDAY Qty: 90 1RF Trulicity 1.5 mg/0.5 mL pen injector 1.5 mg SUB-Q QWEEK 120 Days Qty: 8 3RF aspirin 81 mg tablet,delayed release (DR/EC) 81 mg PO QHS 0RF (DME) MATTRESS Qty: 1 0RF Rx Instructions: MATTRESS FOR HOSPITAL BED [id number] PER PATIENT (DME) blood-glucose meter [Contour Next Meter] misc See Dose Instructions .ROUTE .MEDSUPPLY Qty: 1 0RF Dose Instruction: As directed Rx Instructions: Test once daily (DME) lancets [Comfort Lancets] misc See Dose Instructions .ROUTE .MEDSUPPLY Qty: 100 0RF Dose Instruction: As directed Rx Instructions: Use one daily pantoprazole 40 mg tablet,delayed release (DR/EC) 40 mg PO QDAY 0RF Discontinued ferrous sulfate 325 mg (65 mg iron) tablet,delayed release 325 mg (65 mg iron) tablet,delayed release (DR/EC) 325 mg PO QDAY Qty: 1 0RF lisinopril 5 mg tablet 5 mg PO QDAY Qty: 90 1RF bisoprolol-hydrochlorothiazide 10-6.25 mg tablet 1 tab PO BID Qty: 180 1RF hydrocodone-acetaminophen 7.5-325 mg tablet 1 tab PO BID PRN (Reason: pain) Qty: 56 0RF Rx Instructions: 1 tablet twice daily as needed for pain interfering with rest; for LEFT knee and hip pain since the stroke, okay to refill every 28 days. Other Ambulatory Orders: OT Discharge Order (Routine) Location: None Selected Ordered By: Kathy Holley Physical Therapy at Discharge - General (Routine) Location: None Selected Ordered By: Kathy Holley Follow Up Plan Follow up with: Geovanny Lopez PA-C [Primary Care Provider] - 09/02/21 2:00 pm (Check-in at 1:45 pm) Kenya Rey MD [Physician] - Patient Disposition: Xfer SNF Prognosis: Fair Rehab Potential: Fair I certify that the patient requires SNF services: Yes Overall status at discharge: patient is progressing back to baseline Discharge Orders: Discharge Order (Routine); Ordered 09/01/21 Ordered By: Kathy Holley QUALITY VTE Deep Vein Thrombosis/Pulmonary Embolism Present on Admission: No
[2021-09-01] MEDS: DOCUSATE SODIUM 100 MG CAPSULE PO SCH (08:40)
[2021-09-01] MEDS: HEPARIN 5,000 UNIT/ML VIAL SQ SCH (08:42)
[2021-09-01] MEDS: PANTOPRAZOLE 40 MG TABLET PO SCH (08:42)
[2021-09-01] MEDS: CLOPIDOGREL 75 MG TABLET PO SCH (08:42)
[2021-09-01] MEDS: LEVOTHYROXINE 50 MCG TABLET PO SCH (08:42)
== END 2021-09-01 11:40 | DRG 683 ==
LOC: ED 05:17 → MEDSUR 19:30
PROVIDERS: ADMIT Student in an Organized Health Care Education/Training Program; ATTEND Student in an Organized Health Care Education/Training Program